=== PATIENT | male | born 1945 ===

== ENCOUNTER 2018-09-28 11:27 | Observation (INO) | payer MEDICARE ==
[2018-09-28 11:35] VITALS: BMI 22.3
--- NOTE | 2018-09-28 12:31 | CARD ---
APPROVED REPORT Date of service: 09/28/2018 EKG Measurement Heart [id number] <Conclusion> Normal sinus rhythm Normal ECG
--- NOTE | 2018-09-28 12:38 | ED PDOC ---
HPI: Chest Pain Time Seen by Provider: 09/28/18 12:04 Chief Complaint (Nursing): Chest Pain Chief Complaint (Provider): Chest pain History Per: Patient History/Exam Limitations: no limitations Onset/Duration Of Symptoms: Days Current Symptoms Are (Timing): Still Present Quality: "Pain" Associated Symptoms: Other (clavicular pain). denies: Nausea, Dyspnea, Diaphoresis, Syncope Additional History Per: Patient Additional Complaint(s): 73yo male, with history of HIV (reports normal labs), comes to ER reporting right sided chest pain x 1 week. He reports when the pain initially started, it was "the most severe pain" in his right clavicle area; states the pain is now present in his right chest. Patient reports pain with deep inspiration and shortness of breath as well. He reports a mild cough and associated fever, with tmax today of 100.0. Patient has been taking over the counter cold medications, with some relief of pain; last taken at 8am today. He denies any trauma or injury to the chest area, heavy lifting, or falls. No radiation of pain into arm or neck. No additional complaints. PMD: [facility] Past Medical History Reviewed: Historical Data, Nursing Documentation, Vital Signs Vital Signs: Last Vital Signs Temp 98.5 F 09/28/18 11:36 Pulse 89 09/28/18 11:36 Resp 20 09/28/18 11:36 BP 138/59 L 09/28/18 11:36 Pulse Ox 95 09/28/18 11:36 Primary Care Provider: Non [facility] Provider, - Medical History PMH: Colonic Polyps, Gall Bladder Disease, HIV, HTN, Hypercholesterolemia, Pancreatitis, Chronic Kidney Disease (proteinuria renal insufficiency) - Surgical History Surgical History: Cholecystectomy - Family History Family History: States: No Known Family Hx - Home Medications Home Medications: Ambulatory Orders Medication Instructions Recorded Darunavir/Cobicistat [Prezcobix 1 tab PO DAILY 05/08/18 150 mg-800 mg] Enalapril Maleate [Vasotec] 2.5 mg PO DAILY 05/08/18 Fenofibrate Nanocrystallized 1 tab PO DAILY 05/08/18 [Tricor] Furosemide [Lasix] 20 mg PO DAILY 05/08/18 GlipiZIDE [Glucotrol] 5 mg PO DAILY 05/08/18 Insulin Detemir [Levemir] 15 unit SC HS 05/08/18 Lamivudine 300 mg PO DAILY 05/08/18 Lipase/Protease/Amylase [Creon Dr 1 tab PO TID 05/08/18 24,000 Units Capsule] Ridgewood-3 Fatty Acids [Ridgewood-3] 1 cap PO BID 05/08/18 Vitamin B Complex [Berroca] 1 tab PO DAILY 05/08/18 Aspirin [Adult Aspirin] 81 mg PO DAILY 05/29/18 - Allergies Allergies/Adverse Reactions: Allergies Allergy/AdvReac Type Severity Reaction Status Date / Time No Known Allergies Allergy Verified 05/29/18 09:07 Review of Systems ROS Statement: Except As Marked, All Systems Reviewed And Found Negative Constitutional: Positive for: Fever Cardiovascular: Positive for: Chest Pain, Other (right sided clavicular pain) Respiratory: Positive for: Cough, Shortness of Breath Musculoskeletal: Positive for: Other. Negative for: Neck Pain, Arm Pain Physical Exam - Reviewed Nursing Documentation Reviewed: Yes Vital Signs Reviewed: Yes - Physical Exam Appears: Positive for: Non-toxic, No Acute Distress Head Exam: Positive for: ATRAUMATIC, NORMAL INSPECTION, NORMOCEPHALIC Skin: Positive for: Normal Color Eye Exam: Positive for: Normal appearance Neck: Positive for: Normal, Supple Cardiovascular/Chest: Positive for: Regular Rate, Rhythm, Chest Non Tender, Other (no clavicular tenderness). Negative for: Murmur, Tachycardia Respiratory: Positive for: Normal Breath Sounds. Negative for: Respiratory Distress Gastrointestinal/Abdominal: Positive for: Normal Exam, Soft Back: Positive for: Normal Inspection Extremity: Positive for: Normal ROM. Negative for: Pedal Edema, Deformity Neurological/Psych: Positive for: Awake, Alert, Normal Tone - Laboratory Results Result Diagrams: 09/28/18 12:40 09/28/18 12:40 - ECG O2 Sat by Pulse Oximetry: 95 (RA) Pulse Ox Interpretation: Normal Medical Decision Making Medical Decision Makinyo male with right sided chest pain x 1 week associated right clavicular pain, shortness of breath, cough and fever Plan: -- Labs -- EKG -- CXR 1450 CXR FINDINGS: LUNGS: Limited linear atelectasis right base. No definite infiltrate bilaterally. PLEURA: Trace right pleural effusion identified. None is seen the left. No pneumothorax bilaterally. Elevated right hemidiaphragm noted. CARDIOVASCULAR: No aortic atherosclerotic calcification present. Upper limits normal size heart. No pulmonary vascular congestion. OSSEOUS STRUCTURES: No significant abnormalities. VISUALIZED UPPER ABDOMEN: Normal. OTHER FINDINGS: None. IMPRESSION: Trace right pleural effusion. Elevated right hemidiaphragm noted. Linear atelectasis noted right base. No definite infiltrate bilaterally. CT Angio Chest ordered 1499 Patient signed out to Dr. Garcia pending Chest CT ---- ScribeAttestation: Documented byAlexandra Salgado acting as a scribe for Nila Salmeron MD. Provider ScribeAttestation: All medical record entries made by the Scribe were at my direction and personally dictated by me. I have reviewed the chart and agree that the record accurately reflects my personal performance of the history, physical exam, medical decision making, and the department course for this patient. I have also personally directed, reviewed, and agree with the discharge instructions and disposition. Disposition - Patient ED Disposition Is Patient to be Admitted: Transfer of Care - Disposition Disposition: Transfer of Care Disposition Time: 15:00 Condition: STABLE Forms: [employer] (Pakistani) Patient Signed Over To: Roberto Garcia
[2018-09-28 12:57] LABS: BASO % 0.4 % (0.0-2.0); EOS # 0.1 K/uL (0.0-0.7); EOS % 0.5 % (0.0-4.0); HEMOGLOBIN 8.6 g/dL (12.0-18.0); LYMPH % 9.6 % (20.0-40.0); MEAN CELL VOLUME 59.7 fl (80.0-94.0); MEAN CORPUSCULAR HEMOGLOBIN 18.7 pg (27.0-31.0); MEAN CORPUSCULAR HGB CONC 31.4 g/dL (33.0-37.0); MEAN PLATELET VOLUME 8.5 fl (7.2-11.7); MONO % 10.1 % (0.0-10.0); NEUT # 8.2 K/uL (1.8-7.0); NEUT % 79.4 % (50.0-75.0); PLATELET COUNT 318 K/uL (130-400); RBC 4.61 Mil/uL (4.40-5.90); RED CELL DISTRIBUTION WIDTH 16.7 % (11.5-14.5); WHITE BLOOD COUNT 10.3 K/uL (4.8-10.8)
[2018-09-28 13:01] LABS: URINE BILIRUBIN NEGATIVE (NEGATIVE); URINE BLOOD NEGATIVE (NEGATIVE); URINE CLARITY CLEAR (Clear); URINE COLOR YELLOW (YELLOW); URINE GLUCOSE (UA) NEG (NEGATIVE); URINE LEUKOCYTE ESTERASE NEG Leu/uL (Negative); URINE PROTEIN 30 mg/dL (NEGATIVE); URINE UROBILINOGEN 0.2-1.0 mg/dL (0.2-1.0)
[2018-09-28 13:05] LABS: INR 1.3; PROTHROMBIN TIME 14.8 Seconds (9.8-13.1)
[2018-09-28 13:08] LABS: PARTIAL THROMBOPLASTIN TIME 33.8 Seconds (25.6-37.1)
[2018-09-28 13:15] LABS: ALB/GLOB RATIO 0.9 (1.0-2.1); ALBUMIN 4.3 g/dL (3.5-5.0); ALT/SGPT 23 U/L (21-72); AST/SGOT 31 U/L (17-59); BLOOD UREA NITROGEN 20 mg/dl (9-20); CALCIUM 9.7 mg/dL (8.4-10.2); GFR NON-AFRICAN AMERICAN 43
[2018-09-28 13:22] LABS: BANDS 2 % (0-2); BASOPHIL 1 % (0-2); LYMPHOCYTE 14 % (20-50); METAMYELOCYTE 1 % (0-0); MONOCYTE 6 % (0-10); MYELOCYTE 1 % (0-0); NEUTROPHIL 75 % (42-75); TOTAL CELLS COUNTED 100
[2018-09-28 13:23] LABS: PLATELET ESTIMATE NORMAL (NORMAL)
[2018-09-28 13:24] LABS: ANISOCYTOSIS SLIGHT; B-TYPE NATRIURETIC PEPTIDE 1360 pg/ml (0-900); POIKILOCYTOSIS SLIGHT
[2018-09-28 13:25] LABS: HYPOCHROMIC SLIGHT; MICROCYTOSIS MODERATE; OVALOCYTES SLIGHT; SCHISTOCYTES SLIGHT; SPHEROCYTES SLIGHT; TARGET CELLS SLIGHT
[2018-09-28 13:26] LABS: LARGE PLATELETS PRESENT; TEARDROP CELLS SLIGHT
--- NOTE | 2018-09-28 14:18 | RAD ---
Date of service: 09/28/2018 HISTORY: R sided CP, SOB COMPARISON: Chest CT 07/06/2018. TECHNIQUE: Chest PA and lateral views FINDINGS: LUNGS: Limited linear atelectasis right base. No definite infiltrate bilaterally. PLEURA: Trace right pleural effusion identified. None is seen the left. No pneumothorax bilaterally. Elevated right hemidiaphragm noted. CARDIOVASCULAR: No aortic atherosclerotic calcification present. Upper limits normal size heart. No pulmonary vascular congestion. OSSEOUS STRUCTURES: No significant abnormalities. VISUALIZED UPPER ABDOMEN: Normal. OTHER FINDINGS: None. IMPRESSION: Trace right pleural effusion. Elevated right hemidiaphragm noted. Linear atelectasis noted right base. No definite infiltrate bilaterally.
--- NOTE | 2018-09-28 15:09 | ED PDOC ---
- Laboratory Results Result Diagrams: 09/28/18 12:40 09/28/18 12:40 Lab Results: PT 14.8 Seconds (9.8-13.1) H 09/28/18 12:40 INR 1.3 09/28/18 12:40 APTT 33.8 Seconds (25.6-37.1) 09/28/18 12:40 D-Dimer, Quantitative 967 ng/mlDDU (0-230) H 09/28/18 12:40 Troponin I < 0.0120 ng/mL (0.00-0.120) 09/28/18 12:40 NT-Pro-B Natriuret Pep 1360 pg/ml (0-900) H 09/28/18 12:40 Total Bilirubin 0.5 mg/dl (0.2-1.3) 09/28/18 12:40 AST 31 U/L (17-59) 09/28/18 12:40 ALT 23 U/L (21-72) 09/28/18 12:40 Alkaline Phosphatase 47 U/L (38-126) 09/28/18 12:40 Total Protein 8.9 G/DL (6.3-8.2) H 09/28/18 12:40 Albumin 4.3 g/dL (3.5-5.0) 09/28/18 12:40 Globulin 4.6 gm/dL (2.2-3.9) H 09/28/18 12:40 Albumin/Globulin Ratio 0.9 (1.0-2.1) L 09/28/18 12:40 Urine Color Yellow (YELLOW) 09/28/18 12:40 Urine Clarity Clear (Clear) 09/28/18 12:40 Urine pH 6.0 (5.0-8.0) 09/28/18 12:40 Ur Specific Bill[place] 1.008 (1.003-1.030) 09/28/18 12:40 Urine Protein 30 mg/dL (NEGATIVE) 09/28/18 12:40 Urine Glucose (UA) Neg mg/dL (NEGATIVE) 09/28/18 12:40 Urine Ketones Negative mg/dL (NEGATIVE) 09/28/18 12:40 Urine Blood Negative (NEGATIVE) 09/28/18 12:40 Urine Nitrate Negative (NEGATIVE) 09/28/18 12:40 Urine Bilirubin Negative (NEGATIVE) 09/28/18 12:40 Urine Urobilinogen 0.2-1.0 mg/dL (0.2-1.0) 09/28/18 12:40 Ur Leukocyte Esterase Neg Dee/uL (Negative) 09/28/18 12:40 Urine RBC (Auto) 1 /hpf (0-3) 09/28/18 12:40 Urine Microscopic WBC < 1 /hpf (0-5) 09/28/18 12:40 Interpretation Of Abn Labs: 1.6 cr, probnp mild elevation, 8.6 hg - ECG ECG: Positive for: Interpreted By Me, Viewed By Me ECG Rhythm: Positive for: Normal QRS, Normal ST Segment, Sinus Rhythm O2 Sat by Pulse Oximetry: 95 (RA) Pulse Ox Interpretation: Normal - CT Scan/US ct Other Rad Studies (CT/US): Read By Radiologist Other Rad Interpretation: pleural effusion small; R middle and lower lobe inifiltrate - Progress ED Course And Treament: 1759: AAOx3. Stable. Does not meet sepsis criteria at this time. Breathing well. Tolerated PO. Will admit for obs considering risk factors, age. Hg dropped from previous. Probnp elevation likely from cr abnormality. Cr abnormal, but improved from old. Spoke with [facility] who will admit for Dr. Metzger. Medical Decision Making Medical Decision Makin Patient signed out to me by Dr. Salmeron pending CT Chest. 1650 CT Chest FINDINGS: PULMONARY ARTERIES: Unremarkable. No pulmonary embolism. AORTA: No acute findings. No thoracic aortic aneurysm. No atherosclerotic calcification or mural plaque present. LUNGS: Consolidative changes right lower lobe and right middle lobe. PLEURAL SPACES: Small right pleural effusion. Pneumothorax. HEART: Unremarkable. No cardiomegaly. No significant pericardial effusion. LYMPH NODES: No lymphadenopathy. BONES, CHEST WALL: Unremarkable. No fracture or destructive lesion OTHER FINDINGS: Redemonstration of hepatic masses including the mass IMPRESSION: 1. Unremarkable CT pulmonary angiogram. No pulmonary embolus. 2. Small right pleural effusion. 3. Right middle lobe, right lower lobe infiltrates. 4. Redemonstration right lobe hepatic mass. ScribeAttestation: Documented byAlexandra Salgado acting as a scribe for Roberto Garcia MD. Provider ScribeAttestation: All medical record entries made by the Scribe were at my direction and personally dictated by me. I have reviewed the chart and agree that the record accurately reflects my personal performance of the history, physical exam, medical decision making, and the department course for this patient. I have also personally directed, reviewed, and agree with the discharge instructions and disposition. Disposition Counseled Patient/Family Regarding: Studies Performed, Diagnosis - Clinical Impression Clinical Impression: Pneumonia, Anemia - POA Present On Arrival: None - Disposition Disposition: Hospitalized as Observation Patient Disposition Time: 16:00 Condition: FAIR
[2018-09-28] MEDS ORDERED: Iodixanol 320 MG/ML 100 ML BOTTLE IV ONE (15:42)
[2018-09-28] MEDS ORDERED: Sodium Chloride 0.9% 50 ML IV ONE (15:43)
--- NOTE | 2018-09-28 16:36 | CT ---
Date of service: 09/28/2018 PROCEDURE: CT Chest with contrast (Pulmonary Angiogram) HISTORY: R sided CP, SOB COMPARISON: None available. TECHNIQUE: Axial computed tomography images were obtained of the chest in the pulmonary arterial phase of enhancement. Coronal and sagittal reformatted images were created and reviewed. Intravenous contrast dose: 100 ml Omnipaque 300 Mean Hounsfield value in the main pulmonary artery: 286.90 Radiation dose: Total exam DLP = 284.66 MGy-cm. This CT exam was performed using one or more of the following dose reduction techniques: Automated exposure control, adjustment of the mA and/or kV according to patient size, and/or use of iterative reconstruction technique. FINDINGS: PULMONARY ARTERIES: Unremarkable. No pulmonary embolism. AORTA: No acute findings. No thoracic aortic aneurysm. No atherosclerotic calcification or mural plaque present. LUNGS: Consolidative changes right lower lobe and right middle lobe. PLEURAL SPACES: Small right pleural effusion. Pneumothorax. HEART: Unremarkable. No cardiomegaly. No significant pericardial effusion. LYMPH NODES: No lymphadenopathy. BONES, CHEST WALL: Unremarkable. No fracture or destructive lesion OTHER FINDINGS: Redemonstration of hepatic masses including the mass IMPRESSION: 1. Unremarkable CT pulmonary angiogram. No pulmonary embolus. 2. Small right pleural effusion. 3. Right middle lobe, right lower lobe infiltrates. 4. Redemonstration right lobe hepatic mass.
[2018-09-28] MEDS ORDERED: cefTRIAXone (Rocephin) 1 gm Inj IV ONE (17:46)
[2018-09-28] MEDS ORDERED: Azithromycin 500 MG in Sodium Chloride 0.9% 250 ML IVPB ONE (18:00)
[2018-09-28] MEDS ORDERED: Azithromycin 500 MG IV IVPB ONE (18:31)
[2018-09-28 18:36] LABS: VENOUS BLOOD GAS BASE EXCESS 2.8 mmol/L (0.0-2.0); VENOUS BLOOD GAS PCO2 35 mmHg (40-60); VENOUS BLOOD GAS PO2 33 mm/Hg (30-55); VENOUS BLOOD PH 7.48 (7.32-7.43)
[2018-09-28] MEDS ORDERED: Sodium Chloride 3% for Inhalation 4 ML VIAL.NEB IH PRN (18:36)
[2018-09-28] MEDS ORDERED: Azithromycin 500 MG in Sodium Chloride 0.9% 250 ML IVPB STA (18:52)
--- NOTE | 2018-09-28 18:52 | CP.PCM.HP ---
<Binh Lowry - Last Filed: 09/28/18 18:52> History of Present Illness - History of Present Illness History of Present Illness: 73 yo M with pmhx of HIV, HTN, DLD, DM presents to the ED with L clavicular pain. Pt stated pain started 1 week ago. Described to be "bone pain", worst pain of his life, intermittently radiating to his R chest. Pain also associated with intermittent dyspnea. Pt reports subjective fevers since onset of pain. Pt denies recent falls or direct trauma to his clavicle. No nausea or vomiting. Pt tolerating regular Po diet and normal bm. Denies current sick contacts Of note: pt last traveled to [place] in and traveled with sister who had "broncho-pneumonia". PMD: Dr. Huff at [address] [place] [address] in [place] Surg: cholecystectomy, and phymosis Soc: denies smoking, alcohol, illicit drugs; Lives along Famhx: dm Rx: reconciled NKDA Present on Admission - Present on Admission Any Indicators Present on Admission: No History of Uncontrolled Diabetes: No Review of Systems - Constitutional Constitutional: Chills, Fever - Cardiovascular Cardiovascular: Chest Pain Additional comments: R clavicular pain - Respiratory Respiratory: Cough, Dyspnea - Gastrointestinal Gastrointestinal: absent: Abdominal Pain, Constipation, Diarrhea - Musculoskeletal Musculoskeletal: absent: Abnormal Gait - Neurological Neurological: absent: Abnormal Gait Past Patient History - Past Medical History & Family History Past Medical History?: Yes - Past Social History Smoking Status: Never Smoked Alcohol: None Drugs: Denies Home Situation {Lives}: Alone - CARDIAC Hx Hypercholesterolemia: Yes Hx Hypertension: Yes - PULMONARY Hx Respiratory Disorders: No - NEUROLOGICAL Hx Neurological Disorder: No - HEENT Hx HEENT Problems: Yes Hx Cataracts: Yes (bilat) - RENAL 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) - ENDOCRINE/METABOLIC Hx Endocrine Disorders: Yes Hx Diabetes Mellitus Type 2: Yes - HEMATOLOGICAL/ONCOLOGICAL Hx Human Immunodeficiency Virus (HIV): Yes - INTEGUMENTARY Hx Dermatological Problems: No - MUSCULOSKELETAL/RHEUMATOLOGICAL Hx Musculoskeletal Disorders: No - GASTROINTESTINAL Hx Gall Bladder Disease: Yes Hx Pancreatitis: Yes - GENITOURINARY/GYNECOLOGICAL Hx Genitourinary Disorders: Yes Hx Prostate Problems: Yes - PSYCHIATRIC Hx Psychophysiologic Disorder: No Hx Substance Use: No - SURGICAL HISTORY Hx Cholecystectomy: Yes - ANESTHESIA Hx Anesthesia: Yes Hx Anesthesia Reactions: No Hx Malignant Hyperthermia: No Meds Allergies/Adverse Reactions: Allergies Allergy/AdvReac Type Severity Reaction Status Date / Time No Known Allergies Allergy Verified 05/29/18 09:07 Physical Exam - Constitutional Appears: Well, No Acute Distress - Eye Exam Eye Exam: EOMI - ENT Exam ENT Exam: Mucous Membranes Moist - Respiratory Exam Respiratory Exam: Decreased Breath Sounds (At R lower lung ). absent: Chest Wall Tenderness, Wheezes - Cardiovascular Exam Cardiovascular Exam: +S1, +S2 - GI/Abdominal Exam GI & Abdominal Exam: Normal Bowel Sounds, Soft. absent: Tenderness - Extremities Exam Extremities exam: Negative for: calf tenderness - Back Exam Back exam: absent: CVA tenderness (L), CVA tenderness (R) - Neurological Exam Neurological exam: Alert, CN II-XII Intact, Oriented x3 - Psychiatric Exam Psychiatric exam: Normal Affect, Normal Mood Results - Vital Signs Recent Vital Signs: Last Vital Signs Temp 98.5 F 09/28/18 11:36 Pulse 76 09/28/18 14:13 Resp 21 09/28/18 17:28 BP 148/60 09/28/18 17:28 Pulse Ox 95 09/28/18 18:00 - Labs Result Diagrams: 09/28/18 12:40 09/28/18 12:40 Labs: Laboratory Results - last 24 hr 09/28/18 09/28/18 09/28/18 12:40 12:40 12:40 WBC 10.3 RBC 4.61 Hgb 8.6 L D Hct 27.5 L MCV 59.7 L D MCH 18.7 L MCHC 31.4 L RDW 16.7 H Plt Count 318 MPV 8.5 Neut % (Auto) 79.4 H Lymph % (Auto) 9.6 L Rooks % (Auto) 10.1 H Eos % (Auto) 0.5 Baso % (Auto) 0.4 Neut # (Auto) 8.2 H Lymph # (Auto) 1.0 Rooks # (Auto) 1.0 H Eos # (Auto) 0.1 Baso # (Auto) 0.0 Neutrophils % (Manual) 75 Band Neutrophils % 2 Lymphocytes % (Manual) 14 L Monocytes % (Manual) 6 Basophils % (Manual) 1 Metamyelocytes % 1 H Myelocytes % 1 H Platelet Estimate Normal Large Platelets Present Hypochromasia (manual) Slight Poikilocytosis (manual Slight Anisocytosis (manual) Slight Microcytosis (manual) Moderate Spherocytes Slight Target Cells Slight Tear Drop Cells Slight Ovalocytes Slight Schistocytes Slight PT 14.8 H INR 1.3 APTT 33.8 D-Dimer, Quantitative 967 H pO2 VBG pH VBG pCO2 VBG HCO3 VBG Total CO2 VBG O2 Sat (Calc) VBG Base Excess VBG Potassium Glucose Lactate FiO2 Sodium 132 Potassium 4.4 Chloride 95 L Carbon Dioxide 21 L Anion Gap 20 BUN 20 Creatinine 1.6 H Est GFR ( Amer) 52 Est GFR (Non-Af Amer) 43 POC Glucose (mg/dL) Random Glucose 81 Calcium 9.7 Total Bilirubin 0.5 AST 31 ALT 23 Alkaline Phosphatase 47 Troponin I < 0.0120 NT-Pro-B Natriuret Pep 1360 H Total Protein 8.9 H Albumin 4.3 Globulin 4.6 H Albumin/Globulin Ratio 0.9 L Venous Blood Potassium Urine Color Urine Clarity Urine pH Ur Specific [place] Urine Protein Urine Glucose (UA) Urine Ketones Urine Blood Urine Nitrate Urine Bilirubin Urine Urobilinogen Ur Leukocyte Esterase Urine RBC (Auto) Urine Microscopic WBC Influenza Typ A,B (EIA) 09/28/18 09/28/18 09/28/18 12:40 12:40 12:48 WBC RBC Hgb Hct MCV MCH MCHC RDW Plt Count MPV Neut % (Auto) Lymph % (Auto) Rooks % (Auto) Eos % (Auto) Baso % (Auto) Neut # (Auto) Lymph # (Auto) Rooks # (Auto) Eos # (Auto) Baso # (Auto) Neutrophils % (Manual) Band Neutrophils % Lymphocytes % (Manual) Monocytes % (Manual) Basophils % (Manual) Metamyelocytes % Myelocytes % Platelet Estimate Large Platelets Hypochromasia (manual) Poikilocytosis (manual Anisocytosis (manual) Microcytosis (manual) Spherocytes Target Cells Tear Drop Cells Ovalocytes Schistocytes PT INR APTT D-Dimer, Quantitative pO2 VBG pH VBG pCO2 VBG HCO3 VBG Total CO2 VBG O2 Sat (Calc) VBG Base Excess VBG Potassium Glucose Lactate FiO2 Sodium Potassium Chloride Carbon Dioxide Anion Gap BUN Creatinine Est GFR ( Amer) Est GFR (Non-Af Amer) POC Glucose (mg/dL) 90 Random Glucose Calcium Total Bilirubin AST ALT Alkaline Phosphatase Troponin I NT-Pro-B Natriuret Pep Total Protein Albumin Globulin Albumin/Globulin Ratio Venous Blood Potassium Urine Color Yellow Urine Clarity Clear Urine pH 6.0 Ur Specific [place] 1.008 Urine Protein 30 Urine Glucose (UA) Neg Urine Ketones Negative Urine Blood Negative Urine Nitrate Negative Urine Bilirubin Negative Urine Urobilinogen 0.2-1.0 Ur Leukocyte Esterase Neg Urine RBC (Auto) 1 Urine Microscopic WBC < 1 Influenza Typ A,B (EIA) Negative for flu a/b 09/28/18 18:33 WBC RBC Hgb Hct MCV MCH MCHC RDW Plt Count MPV Neut % (Auto) Lymph % (Auto) Rooks % (Auto) Eos % (Auto) Baso % (Auto) Neut # (Auto) Lymph # (Auto) Rooks # (Auto) Eos # (Auto) Baso # (Auto) Neutrophils % (Manual) Band Neutrophils % Lymphocytes % (Manual) Monocytes % (Manual) Basophils % (Manual) Metamyelocytes % Myelocytes % Platelet Estimate Large Platelets Hypochromasia (manual) Poikilocytosis (manual Anisocytosis (manual) Microcytosis (manual) Spherocytes Target Cells Tear Drop Cells Ovalocytes Schistocytes PT INR APTT D-Dimer, Quantitative pO2 33 VBG pH 7.48 H VBG pCO2 35 L VBG HCO3 26.3 VBG Total CO2 27.2 VBG O2 Sat (Calc) 74.8 H VBG Base Excess 2.8 H VBG Potassium 4.5 Glucose 189 H Lactate 1.4 FiO2 21.0 Sodium 129.0 L Potassium Chloride 96.0 L Carbon Dioxide Anion Gap BUN Creatinine Est GFR ( Amer) Est GFR (Non-Af Amer) POC Glucose (mg/dL) Random Glucose Calcium Total Bilirubin AST ALT Alkaline Phosphatase Troponin I NT-Pro-B Natriuret Pep Total Protein Albumin Globulin Albumin/Globulin Ratio Venous Blood Potassium 4.5 Urine Color Urine Clarity Urine pH Ur Specific [place] Urine Protein Urine Glucose (UA) Urine Ketones Urine Blood Urine Nitrate Urine Bilirubin Urine Urobilinogen Ur Leukocyte Esterase Urine RBC (Auto) Urine Microscopic WBC Influenza Typ A,B (EIA) Assessment & Plan - Assessment and Plan (Free Text) Assessment: 73 yo M with pmhx of HIV, HTN, DLD, DM presents to the ED with L clavicular pain. Admitted for pneumonia. Plan: CXR: Trace right pleural effusion. Elevated right hemidiaphragm noted. Linear atelectasis noted right base. No definite infiltrate bilaterally. CT CHEST: 1. Unremarkable CT pulmonary angiogram. No pulmonary embolus. 2. Small right pleural effusion. 3. Right middle lobe, right lower lobe infiltrates. 4. Redemonstration right lobe hepatic mass. Pneumonia: CAP O2: 98% RA Afebrile s/p Rocephin 1 g and Azithromycin in ER IVABX: c/w Azithromycin and Rocephin IVF: NS f/u am labs, UA, blood and sputum culture Elevated d-dimer: 967 CT chest: no PE CHF BNP: 1360 Lasix 20 Monitor I&Os Anemia: H/H: 8.6/27.5 MCV: chronic in 60s Stool guaiac ordered Monitor for bleed, vitals HTN: c/w home meds: enalapril monitor vitals DM: c/w home meds: glipizide, Levemir Accuchecks ICS: low dose DLD: c/w home meds Fenofibrate HIV: c/w home meds: prezcobix, epivir DVT prophylaxis lovenox Case and plan d/w Dr. Theo Lowry MD PGY2 <Marlon Venegas D - Last Filed: 09/29/18 09:29> Results - Vital Signs Recent Vital Signs: Last Vital Signs Temp 99.0 F 09/29/18 07:48 Pulse 77 09/29/18 07:48 Resp 20 09/29/18 07:48 BP 124/61 09/29/18 07:48 Pulse Ox 99 09/29/18 07:48 - Labs Result Diagrams: 09/29/18 06:00 09/29/18 06:00 Labs: Laboratory Results - last 24 hr 09/28/18 09/28/18 09/28/18 12:40 12:40 12:40 WBC 10.3 RBC 4.61 Hgb 8.6 L D Hct 27.5 L MCV 59.7 L D MCH 18.7 L MCHC 31.4 L RDW 16.7 H Plt Count 318 MPV 8.5 Neut % (Auto) 79.4 H Lymph % (Auto) 9.6 L Rooks % (Auto) 10.1 H Eos % (Auto) 0.5 Baso % (Auto) 0.4 Neut # (Auto) 8.2 H Lymph # (Auto) 1.0 Rooks # (Auto) 1.0 H Eos # (Auto) 0.1 Baso # (Auto) 0.0 Neutrophils % (Manual) 75 Band Neutrophils % 2 Lymphocytes % (Manual) 14 L Monocytes % (Manual) 6 Basophils % (Manual) 1 Metamyelocytes % 1 H Myelocytes % 1 H Platelet Estimate Normal Large Platelets Present Hypochromasia (manual) Slight Poikilocytosis (manual Slight Anisocytosis (manual) Slight Microcytosis (manual) Moderate Spherocytes Slight Target Cells Slight Tear Drop Cells Slight Ovalocytes Slight Schistocytes Slight PT 14.8 H INR 1.3 APTT 33.8 D-Dimer, Quantitative 967 H pO2 VBG pH VBG pCO2 VBG HCO3 VBG Total CO2 VBG O2 Sat (Calc) VBG Base Excess VBG Potassium Glucose Lactate FiO2 Sodium 132 Potassium 4.4 Chloride 95 L Carbon Dioxide 21 L Anion Gap 20 BUN 20 Creatinine 1.6 H Est GFR ( Amer) 52 Est GFR (Non-Af Amer) 43 POC Glucose (mg/dL) Random Glucose 81 Calcium 9.7 Total Bilirubin 0.5 AST 31 ALT 23 Alkaline Phosphatase 47 Troponin I < 0.0120 NT-Pro-B Natriuret Pep 1360 H Total Protein 8.9 H Albumin 4.3 Globulin 4.6 H Albumin/Globulin Ratio 0.9 L Venous Blood Potassium Urine Color Urine Clarity Urine pH Ur Specific [place] Urine Protein Urine Glucose (UA) Urine Ketones Urine Blood Urine Nitrate Urine Bilirubin Urine Urobilinogen Ur Leukocyte Esterase Urine RBC (Auto) Urine Microscopic WBC Influenza Typ A,B (EIA) 09/28/18 09/28/18 09/28/18 12:40 12:40 12:48 WBC RBC Hgb Hct MCV MCH MCHC RDW Plt Count MPV Neut % (Auto) Lymph % (Auto) [place]ooks % (Auto) Eos % (Auto) Baso % (Auto) Neut # (Auto) Lymph # (Auto) [place]s # (Auto) Eos # (Auto) Baso # (Auto) Neutrophils % (Manual) Band Neutrophils % Lymphocytes % (Manual) Monocytes % (Manual) Basophils % (Manual) Metamyelocytes % Myelocytes % Platelet Estimate Large Platelets Hypochromasia (manual) Poikilocytosis (manual Anisocytosis (manual) Microcytosis (manual) Spherocytes Target Cells Tear Drop Cells Ovalocytes Schistocytes PT INR APTT D-Dimer, Quantitative pO2 VBG pH VBG pCO2 VBG HCO3 VBG Total CO2 VBG O2 Sat (Calc) VBG Base Excess VBG Potassium Glucose Lactate FiO2 Sodium Potassium Chloride Carbon Dioxide Anion Gap BUN Creatinine Est GFR ( Amer) Est GFR (Non-Af Amer) POC Glucose (mg/dL) 90 Random Glucose Calcium Total Bilirubin AST ALT Alkaline Phosphatase Troponin I NT-Pro-B Natriuret Pep Total Protein Albumin Globulin Albumin/Globulin Ratio Venous Blood Potassium Urine Color Yellow Urine Clarity Clear Urine pH 6.0 Ur Specific [place] 1.008 Urine Protein 30 Urine Glucose (UA) Neg Urine Ketones Negative Urine Blood Negative Urine Nitrate Negative Urine Bilirubin Negative Urine Urobilinogen 0.2-1.0 Ur Leukocyte Esterase Neg Urine RBC (Auto) 1 Urine Microscopic WBC < 1 Influenza Typ A,B (EIA) Negative for flu a/b 09/28/18 09/28/18 09/28/18 18:33 18:50 22:12 WBC RBC Hgb Hct MCV MCH MCHC RDW Plt Count MPV Neut % (Auto) Lymph % (Auto) Rooks % (Auto) Eos % (Auto) Baso % (Auto) Neut # (Auto) Lymph # (Auto) [place]s # (Auto) Eos # (Auto) Baso # (Auto) Neutrophils % (Manual) Band Neutrophils % Lymphocytes % (Manual) Monocytes % (Manual) Basophils % (Manual) Metamyelocytes % Myelocytes % Platelet Estimate Large Platelets Hypochromasia (manual) Poikilocytosis (manual Anisocytosis (manual) Microcytosis (manual) Spherocytes Target Cells Tear Drop Cells Ovalocytes Schistocytes PT INR APTT D-Dimer, Quantitative pO2 33 VBG pH 7.48 H VBG pCO2 35 L VBG HCO3 26.3 VBG Total CO2 27.2 VBG O2 Sat (Calc) 74.8 H VBG Base Excess 2.8 H VBG Potassium 4.5 Glucose 189 H Lactate 1.4 FiO2 21.0 Sodium 129.0 L Potassium Chloride 96.0 L Carbon Dioxide Anion Gap BUN Creatinine Est GFR ( Amer) Est GFR (Non-Af Amer) POC Glucose (mg/dL) 223 H Random Glucose Calcium Total Bilirubin AST ALT Alkaline Phosphatase Troponin I NT-Pro-B Natriuret Pep Total Protein Albumin Globulin Albumin/Globulin Ratio Venous Blood Potassium 4.5 Urine Color Yellow Urine Clarity Clear Urine pH 6.0 Ur Specific [place] 1.009 Urine Protein 30 Urine Glucose (UA) Neg Urine Ketones Negative Urine Blood Negative Urine Nitrate Negative Urine Bilirubin Negative Urine Urobilinogen 0.2-1.0 Ur Leukocyte Esterase Neg Urine RBC (Auto) Urine Microscopic WBC < 1 Influenza Typ A,B (EIA) 09/29/18 09/29/18 09/29/18 05:09 06:00 06:00 WBC 8.6 RBC 3.97 L Hgb 7.5 L Hct 23.2 L MCV 58.3 L MCH 18.8 L MCHC 32.3 L RDW 16.5 H Plt Count 296 MPV 8.5 Neut % (Auto) 76.6 H Lymph % (Auto) 9.4 L Rooks % (Auto) 13.2 H Eos % (Auto) 0.5 Baso % (Auto) 0.3 Neut # (Auto) 6.6 Lymph # (Auto) 0.8 L Rooks # (Auto) 1.1 H Eos # (Auto) 0.0 Baso # (Auto) 0.0 Neutrophils % (Manual) Band Neutrophils % Lymphocytes % (Manual) Monocytes % (Manual) Basophils % (Manual) Metamyelocytes % Myelocytes % Platelet Estimate Large Platelets Hypochromasia (manual) Poikilocytosis (manual Anisocytosis (manual) Microcytosis (manual) Spherocytes Target Cells Tear Drop Cells Ovalocytes Schistocytes PT INR APTT D-Dimer, Quantitative pO2 VBG pH VBG pCO2 VBG HCO3 VBG Total CO2 VBG O2 Sat (Calc) VBG Base Excess VBG Potassium Glucose Lactate FiO2 Sodium 131 L Potassium 4.0 Chloride 98 Carbon Dioxide 23 Anion Gap 14 BUN 17 Creatinine 1.3 Est GFR ( Amer) > 60 Est GFR (Non-Af Amer) 54 POC Glucose (mg/dL) 154 H Random Glucose 130 H Calcium 8.6 Total Bilirubin AST ALT Alkaline Phosphatase Troponin I NT-Pro-B Natriuret Pep Total Protein Albumin Globulin Albumin/Globulin Ratio Venous Blood Potassium Urine Color Urine Clarity Urine pH Ur Specific [place] Urine Protein Urine Glucose (UA) Urine Ketones Urine Blood Urine Nitrate Urine Bilirubin Urine Urobilinogen Ur Leukocyte Esterase Urine RBC (Auto) Urine Microscopic WBC Influenza Typ A,B (EIA) Attending/Attestation - Attestation I have personally seen and examined this patient.: Yes I have fully participated in the care of the patient.: Yes I have reviewed all pertinent clinical information: Yes Notes (Text): 09/29/18 09:28 Patient seen and examined with resident. Case discussed and agreed with assessment and plan of management.
[2018-09-28 19:10] LABS: URINE BILIRUBIN NEGATIVE (NEGATIVE); URINE BLOOD NEGATIVE (NEGATIVE); URINE CLARITY CLEAR (Clear); URINE COLOR YELLOW (YELLOW); URINE GLUCOSE (UA) NEG (NEGATIVE); URINE LEUKOCYTE ESTERASE NEG Leu/uL (Negative); URINE PROTEIN 30 mg/dL (NEGATIVE); URINE UROBILINOGEN 0.2-1.0 mg/dL (0.2-1.0)
[2018-09-28] MEDS ORDERED: Glucagon Recombinant 1 mg Inj IM PRN (19:10)
[2018-09-28] MEDS ORDERED: Dextrose 50% SYRINGE Inj (50 ml) IV PRN (19:10)
[2018-09-28] MEDS ORDERED: cefTRIAXone (Rocephin) 1 gm Inj ONE (20:28)
[2018-09-28] MEDS ORDERED: Insulin Detemir 100 Units/ml Inj SC SCH ×2 (22:00→23:15)
[2018-09-28 22:06] VITALS: RESP 20
[2018-09-28] MEDS: Sodium Chloride 0.9% 1,000 ML IV SCH (22:40)
[2018-09-28] MEDS: Insulin Regular 100 units/ml SC SCH (22:57)
[2018-09-29] MEDS: Sodium Chloride 0.9% 1,000 ML IV SCH (04:45)
[2018-09-29 06:30] LABS: BASO % 0.3 % (0.0-2.0); EOS % 0.5 % (0.0-4.0); HEMOGLOBIN 7.5 g/dL (12.0-18.0); LYMPH # 0.8 K/uL (1.0-4.3); LYMPH % 9.4 % (20.0-40.0); MEAN CELL VOLUME 58.3 fl (80.0-94.0); MEAN CORPUSCULAR HEMOGLOBIN 18.8 pg (27.0-31.0); MEAN CORPUSCULAR HGB CONC 32.3 g/dL (33.0-37.0); MEAN PLATELET VOLUME 8.5 fl (7.2-11.7); MONO # 1.1 K/uL (0.0-0.8); MONO % 13.2 % (0.0-10.0); NEUT # 6.6 K/uL (1.8-7.0); NEUT % 76.6 % (50.0-75.0); RBC 3.97 Mil/uL (4.40-5.90); RED CELL DISTRIBUTION WIDTH 16.5 % (11.5-14.5); WHITE BLOOD COUNT 8.6 K/uL (4.8-10.8)
[2018-09-29 06:36] LABS: BLOOD UREA NITROGEN 17 mg/dl (9-20); CALCIUM 8.6 mg/dL (8.4-10.2); GFR NON-AFRICAN AMERICAN 54
[2018-09-29] MEDS ORDERED: PROTEASE PO SCH (09:00)
[2018-09-29] MEDS ORDERED: Enoxaparin 40 mg Syringe SC SCH (09:00)
[2018-09-29] MEDS ORDERED: Azithromycin 500 MG in Sodium Chloride 0.9% 250 ML IVPB ONE (09:00)
[2018-09-29] MEDS ORDERED: Multivitamin Vitamin B Complex (Nephro-Vite) Tab PO SCH (09:00)
[2018-09-29] MEDS ORDERED: COBICISTAT PO SCH (09:00)
[2018-09-29] MEDS ORDERED: Omega-3-Acid Ethyl Esters 1 GM Cap PO SCH (09:00)
[2018-09-29] MEDS ORDERED: LIPASE PO SCH (09:00)
[2018-09-29] MEDS ORDERED: Pantoprazole 40 mg EC Tab PO SCH (09:00)
[2018-09-29] MEDS ORDERED: DARUNAVIR PO SCH (09:00)
[2018-09-29] MEDS ORDERED: AMYLASE PO SCH (09:00)
[2018-09-29] MEDS: Insulin Regular 100 units/ml SC SCH ×2 (09:58→11:57)
--- NOTE | 2018-09-29 10:42 | CP.PCM.DIS ---
<Mechelle Alfredo - Last Filed: 09/29/18 12:37> Provider - Provider Date of Admission: 09/28/18 17:55 Attending physician: Shannan Metzger MD Time Spent in preparation of Discharge (in minutes): 20 Diagnosis - Discharge Diagnosis (1) Pneumonia Status: Acute Hospital Course - Lab Results Lab Results: Most Recent Lab Values WBC 8.6 K/uL (4.8-10.8) 09/29/18 06:00 RBC 3.97 Mil/uL (4.40-5.90) L 09/29/18 06:00 Hgb 7.5 g/dL (12.0-18.0) L 09/29/18 06:00 Hct 23.2 % (35.0-51.0) L 09/29/18 06:00 MCV 58.3 fl (80.0-94.0) L 09/29/18 06:00 MCH 18.8 pg (27.0-31.0) L 09/29/18 06:00 MCHC 32.3 g/dL (33.0-37.0) L 09/29/18 06:00 RDW 16.5 % (11.5-14.5) H 09/29/18 06:00 Plt Count 296 K/uL (130-400) 09/29/18 06:00 MPV 8.5 fl (7.2-11.7) 09/29/18 06:00 Neut % (Auto) 76.6 % (50.0-75.0) H 09/29/18 06:00 Lymph % (Auto) 9.4 % (20.0-40.0) L 09/29/18 06:00 [place]aston % (Auto) 13.2 % (0.0-10.0) H 09/29/18 06:00 Eos % (Auto) 0.5 % (0.0-4.0) 09/29/18 06:00 Baso % (Auto) 0.3 % (0.0-2.0) 09/29/18 06:00 Neut # (Auto) 6.6 K/uL (1.8-7.0) 09/29/18 06:00 Lymph # (Auto) 0.8 K/uL (1.0-4.3) L 09/29/18 06:00 [place] # (Auto) 1.1 K/uL (0.0-0.8) H 09/29/18 06:00 Eos # (Auto) 0.0 K/uL (0.0-0.7) 09/29/18 06:00 Baso # (Auto) 0.0 K/uL (0.0-0.2) 09/29/18 06:00 Neutrophils % (Manual) 75 % (42-75) 09/28/18 12:40 Band Neutrophils % 2 % (0-2) 09/28/18 12:40 Lymphocytes % (Manual) 14 % (20-50) L 09/28/18 12:40 Monocytes % (Manual) 6 % (0-10) 09/28/18 12:40 Basophils % (Manual) 1 % (0-2) 09/28/18 12:40 Metamyelocytes % 1 % (0-0) H 09/28/18 12:40 Myelocytes % 1 % (0-0) H 09/28/18 12:40 Platelet Estimate Normal (NORMAL) 09/28/18 12:40 Large Platelets Present 09/28/18 12:40 Hypochromasia (manual) Slight 09/28/18 12:40 Poikilocytosis (manual Slight 09/28/18 12:40 Anisocytosis (manual) Slight 09/28/18 12:40 Microcytosis (manual) Moderate 09/28/18 12:40 Spherocytes Slight 09/28/18 12:40 Target Cells Slight 09/28/18 12:40 Tear Drop Cells Slight 09/28/18 12:40 Ovalocytes Slight 09/28/18 12:40 Schistocytes Slight 09/28/18 12:40 PT 14.8 Seconds (9.8-13.1) H 09/28/18 12:40 INR 1.3 09/28/18 12:40 APTT 33.8 Seconds (25.6-37.1) 09/28/18 12:40 D-Dimer, Quantitative 967 ng/mlDDU (0-230) H 09/28/18 12:40 pO2 33 mm/Hg (30-55) 09/28/18 18:33 VBG pH 7.48 (7.32-7.43) H 09/28/18 18:33 VBG pCO2 35 mmHg (40-60) L 09/28/18 18:33 VBG HCO3 26.3 mmol/L 09/28/18 18:33 VBG Total CO2 27.2 mmol/L (22-28) 09/28/18 18:33 VBG O2 Sat (Calc) 74.8 % (40-65) H 09/28/18 18:33 VBG Base Excess 2.8 mmol/L (0.0-2.0) H 09/28/18 18:33 VBG Potassium 4.5 mmol/L (3.6-5.2) 09/28/18 18:33 Sodium 129.0 mmol/L (132-148) L 09/28/18 18:33 Chloride 96.0 mmol/L (98-107) L 09/28/18 18:33 Glucose 189 mg/dL (75-110) H 09/28/18 18:33 Lactate 1.4 mmol/L (0.7-2.1) 09/28/18 18:33 FiO2 21.0 % 09/28/18 18:33 Sodium 131 mmol/l (132-148) L 09/29/18 06:00 Potassium 4.0 MMOL/L (3.6-5.0) 09/29/18 06:00 Chloride 98 mmol/L (98-107) 09/29/18 06:00 Carbon Dioxide 23 mmol/L (22-30) 09/29/18 06:00 Anion Gap 14 (10-20) 09/29/18 06:00 BUN 17 mg/dl (9-20) 09/29/18 06:00 Creatinine 1.3 mg/dl (0.8-1.5) 09/29/18 06:00 Est GFR ( Amer) > 60 09/29/18 06:00 Est GFR (Non-Af Amer) 54 09/29/18 06:00 POC Glucose (mg/dL) 270 mg/dL (65-110) H 09/29/18 10:34 Random Glucose 130 mg/dL (75-110) H 09/29/18 06:00 Calcium 8.6 mg/dL (8.4-10.2) 09/29/18 06:00 Total Bilirubin 0.5 mg/dl (0.2-1.3) 09/28/18 12:40 AST 31 U/L (17-59) 09/28/18 12:40 ALT 23 U/L (21-72) 09/28/18 12:40 Alkaline Phosphatase 47 U/L (38-126) 09/28/18 12:40 Troponin I < 0.0120 ng/mL (0.00-0.120) 09/28/18 12:40 NT-Pro-B Natriuret Pep 1360 pg/ml (0-900) H 09/28/18 12:40 Total Protein 8.9 G/DL (6.3-8.2) H 09/28/18 12:40 Albumin 4.3 g/dL (3.5-5.0) 09/28/18 12:40 Globulin 4.6 gm/dL (2.2-3.9) H 09/28/18 12:40 Albumin/Globulin Ratio 0.9 (1.0-2.1) L 09/28/18 12:40 Venous Blood Potassium 4.5 mmol/L (3.6-5.2) 09/28/18 18:33 Urine Color Yellow (YELLOW) 09/28/18 18:50 Urine Clarity Clear (Clear) 09/28/18 18:50 Urine pH 6.0 (5.0-8.0) 09/28/18 18:50 Ur Specific [place] 1.009 (1.003-1.030) 09/28/18 18:50 Urine Protein 30 mg/dL (NEGATIVE) 09/28/18 18:50 Urine Glucose (UA) Neg mg/dL (NEGATIVE) 09/28/18 18:50 Urine Ketones Negative mg/dL (NEGATIVE) 09/28/18 18:50 Urine Blood Negative (NEGATIVE) 09/28/18 18:50 Urine Nitrate Negative (NEGATIVE) 09/28/18 18:50 Urine Bilirubin Negative (NEGATIVE) 09/28/18 18:50 Urine Urobilinogen 0.2-1.0 mg/dL (0.2-1.0) 09/28/18 18:50 Ur Leukocyte Esterase Neg Dee/uL (Negative) 09/28/18 18:50 Urine RBC (Auto) 1 /hpf (0-3) 09/28/18 12:40 Urine Microscopic WBC < 1 /hpf (0-5) 09/28/18 18:50 Influenza Typ A,B (EIA) Negative for flu a/b (NEGATIVE) 09/28/18 12:40 - Hospital Course Hospital Course: 73 yo M with pmhx of HIV, HTN, DLD, DM presents to the ED with L clavicular pain. Admitted for observation for pneumonia. CXR: Trace right pleural effusion. Elevated right hemidiaphragm noted. Linear atelectasis noted right base. No definite infiltrate bilaterally. CT CHEST: 1. Unremarkable CT pulmonary angiogram. No pulmonary embolus. 2. Small right pleural effusion. 3. Right middle lobe, right lower lobe infiltrates. 4. Redemonstration right lobe hepa tic mass. Pt remained afebrile, WBC wnl, saturating 99% on room air. Medically cleared for DC to home on PO antibiotics. Recommend follow up with Dr Huff TueOctober 02. Discharge Exam - Head Exam Head Exam: ATRAUMATIC, NORMAL INSPECTION, NORMOCEPHALIC - Eye Exam Eye Exam: Normal appearance - ENT Exam ENT Exam: Mucous Membranes Moist - Respiratory Exam Respiratory Exam: NORMAL BREATHING PATTERN. absent: Wheezes, Respiratory Distress - Cardiovascular Exam Cardiovascular Exam: REGULAR RHYTHM - GI/Abdominal Exam GI & Abdominal Exam: Normal Bowel Sounds, Soft. absent: Tenderness - Neurological Exam Neurological exam: Alert, Normal Gait, Oriented x3 - Psychiatric Exam Psychiatric exam: Normal Affect, Normal Mood - Skin Skin Exam: Dry, Normal Color, Warm Discharge Plan - Discharge Medications Prescriptions: Azithromycin [Zithromax Tri-Alphonso] 500 mg PO DAILY #3 tablet levoFLOXacin 500 mg in D5W [Levaquin 500MG] 500 mg IVPB DAILY #14 bag - Follow Up Plan Condition: FAIR Disposition: HOME/ ROUTINE Instructions: Community-Acquired Pneumonia, Adult (DC), Normocytic Normochromic Anemia (DC) Additional Instructions: follow up appointment with PMD Dr Huff on tuesdayoctober 02 at 11:30am Referrals: Xavier Huff [Medical Doctor] - <Marlon Venegas D - Last Filed: 09/29/18 13:32> Provider - Provider Date of Admission: 09/28/18 17:55 Attending physician: Shannan Metzger MD Hospital Course - Lab Results Lab Results: Most Recent Lab Values WBC 8.6 K/uL (4.8-10.8) 09/29/18 06:00 RBC 3.97 Mil/uL (4.40-5.90) L 09/29/18 06:00 Hgb 7.5 g/dL (12.0-18.0) L 09/29/18 06:00 Hct 23.2 % (35.0-51.0) L 09/29/18 06:00 MCV 58.3 fl (80.0-94.0) L 09/29/18 06:00 MCH 18.8 pg (27.0-31.0) L 09/29/18 06:00 MCHC 32.3 g/dL (33.0-37.0) L 09/29/18 06:00 RDW 16.5 % (11.5-14.5) H 09/29/18 06:00 Plt Count 296 K/uL (130-400) 09/29/18 06:00 MPV 8.5 fl (7.2-11.7) 09/29/18 06:00 Neut % (Auto) 76.6 % (50.0-75.0) H 09/29/18 06:00 Lymph % (Auto) 9.4 % (20.0-40.0) L 09/29/18 06:00 Gaston % (Auto) 13.2 % (0.0-10.0) H 09/29/18 06:00 Eos % (Auto) 0.5 % (0.0-4.0) 09/29/18 06:00 Baso % (Auto) 0.3 % (0.0-2.0) 09/29/18 06:00 Neut # (Auto) 6.6 K/uL (1.8-7.0) 09/29/18 06:00 Lymph # (Auto) 0.8 K/uL (1.0-4.3) L 09/29/18 06:00 Gaston # (Auto) 1.1 K/uL (0.0-0.8) H 09/29/18 06:00 Eos # (Auto) 0.0 K/uL (0.0-0.7) 09/29/18 06:00 Baso # (Auto) 0.0 K/uL (0.0-0.2) 09/29/18 06:00 Neutrophils % (Manual) 75 % (42-75) 09/28/18 12:40 Band Neutrophils % 2 % (0-2) 09/28/18 12:40 Lymphocytes % (Manual) 14 % (20-50) L 09/28/18 12:40 Monocytes % (Manual) 6 % (0-10) 09/28/18 12:40 Basophils % (Manual) 1 % (0-2) 09/28/18 12:40 Metamyelocytes % 1 % (0-0) H 09/28/18 12:40 Myelocytes % 1 % (0-0) H 09/28/18 12:40 Platelet Estimate Normal (NORMAL) 09/28/18 12:40 Large Platelets Present 09/28/18 12:40 Hypochromasia (manual) Slight 09/28/18 12:40 Poikilocytosis (manual Slight 09/28/18 12:40 Anisocytosis (manual) Slight 09/28/18 12:40 Microcytosis (manual) Moderate 09/28/18 12:40 Spherocytes Slight 09/28/18 12:40 Target Cells Slight 09/28/18 12:40 Tear Drop Cells Slight 09/28/18 12:40 Ovalocytes Slight 09/28/18 12:40 Schistocytes Slight 09/28/18 12:40 PT 14.8 Seconds (9.8-13.1) H 09/28/18 12:40 INR 1.3 09/28/18 12:40 APTT 33.8 Seconds (25.6-37.1) 09/28/18 12:40 D-Dimer, Quantitative 967 ng/mlDDU (0-230) H 09/28/18 12:40 pO2 33 mm/Hg (30-55) 09/28/18 18:33 VBG pH 7.48 (7.32-7.43) H 09/28/18 18:33 VBG pCO2 35 mmHg (40-60) L 09/28/18 18:33 VBG HCO3 26.3 mmol/L 09/28/18 18:33 VBG Total CO2 27.2 mmol/L (22-28) 09/28/18 18:33 VBG O2 Sat (Calc) 74.8 % (40-65) H 09/28/18 18:33 VBG Base Excess 2.8 mmol/L (0.0-2.0) H 09/28/18 18:33 VBG Potassium 4.5 mmol/L (3.6-5.2) 09/28/18 18:33 Sodium 129.0 mmol/L (132-148) L 09/28/18 18:33 Chloride 96.0 mmol/L (98-107) L 09/28/18 18:33 Glucose 189 mg/dL (75-110) H 09/28/18 18:33 Lactate 1.4 mmol/L (0.7-2.1) 09/28/18 18:33 FiO2 21.0 % 09/28/18 18:33 Sodium 131 mmol/l (132-148) L 09/29/18 06:00 Potassium 4.0 MMOL/L (3.6-5.0) 09/29/18 06:00 Chloride 98 mmol/L (98-107) 09/29/18 06:00 Carbon Dioxide 23 mmol/L (22-30) 09/29/18 06:00 Anion Gap 14 (10-20) 09/29/18 06:00 BUN 17 mg/dl (9-20) 09/29/18 06:00 Creatinine 1.3 mg/dl (0.8-1.5) 09/29/18 06:00 Est GFR ( Amer) > 60 09/29/18 06:00 Est GFR (Non-Af Amer) 54 09/29/18 06:00 POC Glucose (mg/dL) 270 mg/dL (65-110) H 09/29/18 10:34 Random Glucose 130 mg/dL (75-110) H 09/29/18 06:00 Calcium 8.6 mg/dL (8.4-10.2) 09/29/18 06:00 Total Bilirubin 0.5 mg/dl (0.2-1.3) 09/28/18 12:40 AST 31 U/L (17-59) 09/28/18 12:40 ALT 23 U/L (21-72) 09/28/18 12:40 Alkaline Phosphatase 47 U/L (38-126) 09/28/18 12:40 Troponin I < 0.0120 ng/mL (0.00-0.120) 09/28/18 12:40 NT-Pro-B Natriuret Pep 1360 pg/ml (0-900) H 09/28/18 12:40 Total Protein 8.9 G/DL (6.3-8.2) H 09/28/18 12:40 Albumin 4.3 g/dL (3.5-5.0) 09/28/18 12:40 Globulin 4.6 gm/dL (2.2-3.9) H 09/28/18 12:40 Albumin/Globulin Ratio 0.9 (1.0-2.1) L 09/28/18 12:40 Venous Blood Potassium 4.5 mmol/L (3.6-5.2) 09/28/18 18:33 Urine Color Yellow (YELLOW) 09/28/18 18:50 Urine Clarity Clear (Clear) 09/28/18 18:50 Urine pH 6.0 (5.0-8.0) 09/28/18 18:50 Ur Specific [place] 1.009 (1.003-1.030) 09/28/18 18:50 Urine Protein 30 mg/dL (NEGATIVE) 09/28/18 18:50 Urine Glucose (UA) Neg mg/dL (NEGATIVE) 09/28/18 18:50 Urine Ketones Negative mg/dL (NEGATIVE) 09/28/18 18:50 Urine Blood Negative (NEGATIVE) 09/28/18 18:50 Urine Nitrate Negative (NEGATIVE) 09/28/18 18:50 Urine Bilirubin Negative (NEGATIVE) 09/28/18 18:50 Urine Urobilinogen 0.2-1.0 mg/dL (0.2-1.0) 09/28/18 18:50 Ur Leukocyte Esterase Neg Dee/uL (Negative) 09/28/18 18:50 Urine RBC (Auto) 1 /hpf (0-3) 09/28/18 12:40 Urine Microscopic WBC < 1 /hpf (0-5) 09/28/18 18:50 Influenza Typ A,B (EIA) Negative for flu a/b (NEGATIVE) 09/28/18 12:40 Attending/Attestation - Attestation I have personally seen and examined this patient.: Yes I have fully participated in the care of the patient.: Yes I have reviewed all pertinent clinical information, including history, physical exam and plan: Yes Notes (Text): 09/29/18 13:31 Patient seen and examined with resident. Case discussed and agreed with assessment. Patient discharged in stable condition
[2018-09-29 16:21] VITALS: BP 136/82; PULSE 67; TEMP 99; O2SAT 97
[2018-10-01 06:01] LABS: % CD4 (T HELPER CELL) 29 Percent (30-61); % CD8 (SUPPRESSOR T CELL) 46 Percent (12-42); ABSOLUTE CD4 CELLS 235 Cells/mcL (490-1740); ABSOLUTE CD8 CELLS 375 Cells/mcL (180-1170); ABSOLUTE LYMPHOCYTES 824 Cells/mcL (850-3900); HELPER/SUPPRESSOR RATIO 0.63 Ratio (0.86-5.00)
== END 2018-09-29 16:46 | disposition home or self-care (01) ==
LOC: H.ER 11:27 → H.ERHOLD 17:55 → H.MEDSURG1 21:48
PROVIDERS: ADMIT Family Medicine; ATTEND Family Medicine
DX: J18.9 Pneumonia, unspecified organism (principal); J98.11 Atelectasis; I11.0 Hypertensive heart disease with heart failure; I50.9 Heart failure, unspecified; E11.8 Type 2 diabetes mellitus with unspecified complications; E78.00 Pure hypercholesterolemia, unspecified; Z21 Asymptomatic human immunodeficiency virus [HIV] infection status; Z79.4 Long term (current) use of insulin; Z79.82 Long term (current) use of aspirin
CPT/HCPCS: 36415; 71046; 71275; 80048; 80053; 81003; 82803; 82948; 83880; 84484; 85025; 85378; 85610; 85730; 86360; 86738; 87040; 87536; 87804; 93005; 96365; 99285; G0378; J0456; J0696; J1650; J7030; Q9967

== ENCOUNTER 2018-10-15 15:28 | Observation (INO) | payer MEDICARE ==
[2018-10-15 15:29] VITALS: BMI 22.3
[2018-10-15 16:32] LABS: VENOUS BLOOD GAS BASE EXCESS -1.4 mmol/L (0.0-2.0); VENOUS BLOOD GAS PCO2 36 mmHg (40-60); VENOUS BLOOD GAS PO2 45 mm/Hg (30-55); VENOUS BLOOD PH 7.41 (7.32-7.43)
[2018-10-15 16:39] LABS: EOS # 0.1 K/uL (0.0-0.7); EOS % 0.8 % (0.0-4.0); LYMPH # 0.9 K/uL (1.0-4.3); MONO # 0.6 K/uL (0.0-0.8)
--- NOTE | 2018-10-15 16:39 | ED PDOC ---
Syncope/Near Syncope/Dizziness Time Seen by Provider: 10/15/18 15:40 Chief Complaint (Nursing): Dizziness/Lightheaded Chief Complaint (Provider): Dizziness/Lightheaded History Per: Patient History/Exam Limitations: no limitations Onset/Duration Of Symptoms: Persistent (x1 month) Current Symptoms Are (Timing): Still Present Additional Complaint(s): 73 year old male with medical history of HIV, HTN, diabetes, and dyslipidemia, presents to the emergency department with a complaint of generalized weakness and intermittent abdominal pain ongoing for 1 month. Patient was recently admitted in-patient for pneumonia and had bloodwork performed on 10/13/18. She was called today with results of 5.9 hemoglobin. Hemoglobin was noted at 8.0 during admission. Of note, patient has history of anemia but denies past transfusions, abdominal bleed, black or bloody stools. Past Medical History Reviewed: Historical Data, Nursing Documentation, Vital Signs Vital Signs: Last Vital Signs Temp 98.3 F 10/15/18 15:35 Pulse 106 H 10/15/18 15:35 Resp 18 10/15/18 15:35 BP 152/65 H 10/15/18 15:35 Pulse Ox 95 10/15/18 15:35 Primary Care Provider: Xavier Huff - Medical History PMH: Anemia, Colonic Polyps, Gall Bladder Disease, HIV, HTN, Hypercholesterolemia, Pancreatitis, Chronic Kidney Disease (proteinuria renal insufficiency) - Surgical History Surgical History: Cholecystectomy - Family History Family History: States: Other Other Family History: Noncontributory - Home Medications Home Medications: Ambulatory Orders Medication Instructions Recorded Darunavir/Cobicistat [Prezcobix 1 tab PO DAILY 05/08/18 800 mg-150 mg Tablet] Enalapril Maleate [Vasotec] 2.5 mg PO DAILY 05/08/18 Fenofibrate Nanocrystallized 1 tab PO DAILY 05/08/18 [Tricor] Furosemide [Lasix] 20 mg PO DAILY 05/08/18 GlipiZIDE [Glucotrol] 5 mg PO DAILY 05/08/18 Insulin Detemir [Levemir] 30 unit SC HS 05/08/18 Lamivudine 300 mg PO DAILY 05/08/18 Lipase/Protease/Amylase [Creon Dr 1 tab PO TID 05/08/18 24,000 Units Capsule] Bradford-3 Fatty Acids [Bradford-3] 1 cap PO BID 05/08/18 Vitamin B Complex [Berroca] 1 tab PO DAILY 05/08/18 Aspirin [Adult Aspirin] 81 mg PO DAILY 05/29/18 Ascorbic Acid [Vitamin C] 1,000 mg PO DAILY 10/15/18 Budesonide/Formoterol Fumarate 1 aer IH BID 10/15/18 [Symbicort] Ferrous Sulfate [High Potency Iron] 134 mg PO DAILY 10/15/18 Sitagliptin Phos/Metformin HCl 1 each PO BID 10/15/18 [Janumet 50-1,000 mg Tablet] Terazosin HCl 4 mg PO HS 10/15/18 - Allergies Allergies/Adverse Reactions: Allergies Allergy/AdvReac Type Severity Reaction Status Date / Time No Known Allergies Allergy Verified 10/15/18 15:32 Review of Systems ROS Statement: Except As Marked, All Systems Reviewed And Found Negative Constitutional: Positive for: Weakness Gastrointestinal: Positive for: Abdominal Pain. Negative for: Melena, Hematochezia Physical Exam - Reviewed Nursing Documentation Reviewed: Yes Vital Signs Reviewed: Yes - Physical Exam Appears: Positive for: Non-toxic, No Acute Distress Head Exam: Positive for: ATRAUMATIC, NORMOCEPHALIC Skin: Positive for: Pallor Eye Exam: Positive for: EOMI, PERRL, Conjunctival injection (pallor) ENT: Positive for: Other (tacky mucous membranes) Neck: Positive for: Painless ROM, Supple Cardiovascular/Chest: Positive for: Regular Rate, Rhythm. Negative for: Murmur Respiratory: Positive for: Normal Breath Sounds. Negative for: Respiratory Distress Gastrointestinal/Abdominal: Positive for: Soft. Negative for: Tenderness, Mass, Distended, Guarding Rectal: Positive for: Rectal Tone Is: (normal), Other (ALEXA Herring present as quality control coordinator: (-) stool obtained for occult). Negative for: Hemorrhoids (or gross blood) Extremity: Positive for: Normal ROM. Negative for: Deformity Lymphatic: Negative for: Adenopathy Neurological/Psych: Positive for: Awake, Alert. Negative for: Motor/Sensory Deficits - Laboratory Results Result Diagrams: 10/15/18 17:13 10/15/18 16:24 Lab Results: pO2 45 mm/Hg (30-55) 10/15/18 16:26 VBG pH 7.41 (7.32-7.43) 10/15/18 16:26 VBG pCO2 36 mmHg (40-60) L 10/15/18 16:26 VBG HCO3 23.4 mmol/L 10/15/18 16:26 VBG Total CO2 23.9 mmol/L (22-28) 10/15/18 16:26 VBG O2 Sat (Calc) 85.0 % (40-65) H 10/15/18 16:26 VBG Base Excess -1.4 mmol/L (0.0-2.0) L 10/15/18 16:26 VBG Potassium 4.6 mmol/L (3.6-5.2) 10/15/18 16:26 Sodium 130.0 mmol/L (132-148) L 10/15/18 16:26 Chloride 96.0 mmol/L (98-107) L 10/15/18 16:26 Glucose 157 mg/dL (75-110) H 10/15/18 16:26 Lactate 4.3 mmol/L (0.7-2.1) H* 10/15/18 16:26 FiO2 21.0 % 10/15/18 16:26 Blood Gas Comments Lac=4.3 10/15/18 16:26 Crit Value Called To anita Fuentes 10/15/18 16:26 Crit Value Called By 10/15/18 16:26 Crit Value Read Back Y 10/15/18 16:26 Blood Gas Notified Time 1632 10/15/18 16:26 - ECG O2 Sat by Pulse Oximetry: 95 (RA) Pulse Ox Interpretation: Normal Medical Decision Making Medical Decision Making: Initial Impression: anemia Initial Plan: * Packed cells leukoreduced * Labs * EKG * CXR * Blood culture * Occult blood, stool 6p Initial lactic acid 4 on ABG and Hgb 8.4. Repeat of both 4 and 8.2 respectively. Pt has orthostatic vitals. Will need hydration and possibly blood transfusion for stabilization. BARNEY Crisostomo Hospitalist for hospitalization. BARNEY pt findings and plan of care. 730p BARNEY Mcdaniel Hematology. Orders placed as per discussion. Transfusion ordered. BARNEY pt risks/benefits and consent signed. Scribe Attestation: Documented by Annmarie Peck, acting as a scribe for Anita Barragan MD. Provider Scribe Attestation: All medical record entries made by the Scribe were at my direction and pers onally dictated by me. I have reviewed the chart and agree that the record accurately reflects my personal performance of the history, physical exam, medical decision making, and the department course for this patient. I have also personally directed, reviewed, and agree with the discharge instructions and disposition. Disposition - Clinical Impression Clinical Impression: Anemia, Dehydration - Disposition Disposition Time: 18:00 Condition: FAIR - Pt Status Changed To: Hospital Disposition Of: Observation - POA Present On Arrival: None
[2018-10-15 16:46] LABS: BASO % 0.3 % (0.0-2.0); HEMOGLOBIN 8.4 g/dL (12.0-18.0); LYMPH % 11.4 % (20.0-40.0); MEAN CELL VOLUME 58.7 fl (80.0-94.0); MEAN CORPUSCULAR HGB CONC 32.4 g/dL (33.0-37.0); MEAN PLATELET VOLUME 8.6 fl (7.2-11.7); MONO % 8.2 % (0.0-10.0); NEUT % 79.3 % (50.0-75.0); RBC 4.39 Mil/uL (4.40-5.90); WHITE BLOOD COUNT 7.6 K/uL (4.8-10.8)
[2018-10-15 16:51] LABS: INR 1.2; PROTHROMBIN TIME 13.1 Seconds (9.8-13.1)
[2018-10-15 16:52] LABS: IRON 53 ug/dL (49-181)
[2018-10-15 16:54] LABS: PARTIAL THROMBOPLASTIN TIME 37.2 Seconds (25.6-37.1)
--- NOTE | 2018-10-15 16:55 | RAD ---
Date of service: 10/15/2018 HISTORY: weakness COMPARISON: 09/28/2018 TECHNIQUE: 1 view obtained. FINDINGS: LUNGS: Linear scar/atelectasis at right base. No acute infiltrate. PLEURA: No pleural effusion. Mild nonspecific elevation of the right hemidiaphragm. CARDIOVASCULAR: No aortic atherosclerotic calcification present. Normal cardiac size. No pulmonary vascular congestion. OSSEOUS STRUCTURES: No significant abnormalities. VISUALIZED UPPER ABDOMEN: Normal. OTHER FINDINGS: None. IMPRESSION: No acute infiltrate.
[2018-10-15 17:05] LABS: ALBUMIN 4.5 g/dL (3.5-5.0); CALCIUM 9.5 mg/dL (8.4-10.2)
[2018-10-15 17:06] LABS: % IRON SATURATION 18 % (20-55); TOTAL IRON BINDING CAPACITY 290 ug/dL (250-450)
[2018-10-15 17:17] LABS: BASO % 0.6 % (0.0-2.0); EOS # 0.1 K/uL (0.0-0.7); EOS % 0.8 % (0.0-4.0); HEMOGLOBIN 8.2 g/dL (12.0-18.0); LYMPH % 12.7 % (20.0-40.0); MEAN CELL VOLUME 58.5 fl (80.0-94.0); MEAN CORPUSCULAR HEMOGLOBIN 18.8 pg (27.0-31.0); MEAN CORPUSCULAR HGB CONC 32.2 g/dL (33.0-37.0); MEAN PLATELET VOLUME 8.4 fl (7.2-11.7); MONO # 0.7 K/uL (0.0-0.8); MONO % 8.7 % (0.0-10.0); NEUT # 5.9 K/uL (1.8-7.0); NEUT % 77.2 % (50.0-75.0); NRBC % 0.1 % (0.0-0.0); RBC 4.35 Mil/uL (4.40-5.90); RED CELL DISTRIBUTION WIDTH 17.5 % (11.5-14.5); WHITE BLOOD COUNT 7.6 K/uL (4.8-10.8)
[2018-10-15] MEDS ORDERED: Sodium Chloride 0.9% 1,000 ML IV STA (18:17)
--- NOTE | 2018-10-15 19:04 | CP.PCM.HP ---
<Chiara Canas - Last Filed: 10/15/18 20:43> History of Present Illness - History of Present Illness History of Present Illness: CC: weakness, fatigue and PMD Hb of 5.9 HPI: 73 YO Male with PMHx, HTN, NIDDM, HIV, dyslipidemia, thalassemia presents to ED from PMD for weakness, fatigue and sent from PMD with a hb of 5.9. Patient was seen by the PMD for weakness and fatigue for the past few days, he underwent blood work and was called by PMD today due to critical blood-work with hb of 5.9. Patient endorsing feeling fatigue for the past coupe of days and has been worsening. Has hx of thalassemia, takes PO Iron at home and has never needed any transfusions in the past. PMHx: HTN, NIDDM, HIV, dyslipidemia, thalassemia SurgHx: s/p cholesectomy FHx: DM, HTN SHx: denies ETOH, smoking (hx of smoking) and [place] drug use NKDA Present on Admission - Present on Admission Any Indicators Present on Admission: No Review of Systems - Constitutional Constitutional: Fatigue, Weakness. absent: Chills, Fever - Cardiovascular Cardiovascular: absent: Chest Pain, Dyspnea, Palpitations - Respiratory Respiratory: absent: Cough, Dyspnea - Gastrointestinal Gastrointestinal: absent: Abdominal Pain - Genitourinary Genitourinary: absent: Dysuria - Neurological Neurological: absent: Headaches 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) - ENDOCRINE/METABOLIC Hx Endocrine Disorders: Yes Hx Diabetes Mellitus Type 2: Yes - HEMATOLOGICAL/ONCOLOGICAL Hx Anemia: Yes Hx Human Immunodeficiency Virus (HIV): Yes - INTEGUMENTARY Hx Dermatological Problems: No - MUSCULOSKELETAL/RHEUMATOLOGICAL Hx Musculoskeletal Disorders: No Hx Falls: No - GASTROINTESTINAL Hx Gall Bladder Disease: Yes Hx Pancreatitis: Yes - GENITOURINARY/GYNECOLOGICAL Hx Genitourinary Disorders: Yes - PSYCHIATRIC Hx Psychophysiologic Disorder: No Hx Substance Use: No - SURGICAL HISTORY Hx Cholecystectomy: Yes - ANESTHESIA Hx Anesthesia: Yes Hx Anesthesia Reactions: No Hx Malignant Hyperthermia: No Meds Allergies/Adverse Reactions: Allergies Allergy/AdvReac Type Severity Reaction Status Date / Time No Known Allergies Allergy Verified 10/15/18 15:32 Physical Exam - Constitutional Appears: No Acute Distress - Head Exam Head Exam: NORMAL INSPECTION - Eye Exam Eye Exam: EOMI, Normal appearance - ENT Exam ENT Exam: Mucous Membranes Moist - Respiratory Exam Respiratory Exam: Clear to Auscultation Bilateral, NORMAL BREATHING PATTERN. absent: Wheezes - Cardiovascular Exam Cardiovascular Exam: REGULAR RHYTHM, +S1, +S2 - GI/Abdominal Exam GI & Abdominal Exam: Distended, Normal Bowel Sounds, Soft. absent: Tenderness - Extremities Exam Extremities exam: Positive for: normal inspection. Negative for: calf tenderness, pedal edema - Back Exam Back exam: NORMAL INSPECTION - Neurological Exam Neurological exam: Alert, Oriented x3 - Psychiatric Exam Psychiatric exam: Normal Mood - Skin Skin Exam: Pallor, Warm Results - Vital Signs Recent Vital Signs: Last Vital Signs Temp 98.3 F 10/15/18 15:35 Pulse 94 H 10/15/18 16:36 Resp 20 10/15/18 16:36 BP 152/65 H 10/15/18 15:35 Pulse Ox 95 10/15/18 18:34 - Labs Result Diagrams: 10/15/18 17:13 10/15/18 16:24 Labs: Laboratory Results - last 24 hr 10/15/18 10/15/18 10/15/18 16:00 16:24 16:24 WBC 7.6 RBC 4.39 L Hgb 8.4 L Hct 25.8 L MCV 58.7 L MCH 19.0 L MCHC 32.4 L RDW 18.0 H Plt Count 412 H D MPV 8.6 Neut % (Auto) 79.3 H Lymph % (Auto) 11.4 L [place] % (Auto) 8.2 Eos % (Auto) 0.8 Baso % (Auto) 0.3 Neut # (Auto) 6.0 Lymph # (Auto) 0.9 L [place] # (Auto) 0.6 Eos # (Auto) 0.1 Baso # (Auto) 0.0 PT INR APTT pO2 VBG pH VBG pCO2 VBG HCO3 VBG Total CO2 VBG O2 Sat (Calc) VBG Base Excess VBG Potassium Glucose Lactate FiO2 Blood Gas Comments Crit Value Called To Crit Value Called By Crit Value Read Back Blood Gas Notified Time Sodium Potassium Chloride Carbon Dioxide Anion Gap BUN Creatinine Est GFR ( Amer) Est GFR (Non-Af Amer) Random Glucose Lactic Acid Calcium Phosphorus Magnesium Iron TIBC % Saturation Ferritin Total Bilirubin AST ALT Alkaline Phosphatase Total Protein Albumin Globulin Albumin/Globulin Ratio Vitamin B12 Venous Blood Potassium Stool Occult Blood Negative Blood Type A POSITIVE Blood Type Confirm Antibody Screen Negative Crossmatch See Detail BBK History Checked No verified bt 10/15/18 10/15/18 10/15/18 16:24 16:24 16:24 WBC RBC Hgb Hct MCV MCH MCHC RDW Plt Count MPV Neut % (Auto) Lymph % (Auto) [place] % (Auto) Eos % (Auto) Baso % (Auto) Neut # (Auto) Lymph # (Auto) [place] # (Auto) Eos # (Auto) Baso # (Auto) PT 13.1 INR 1.2 APTT 37.2 H pO2 VBG pH VBG pCO2 VBG HCO3 VBG Total CO2 VBG O2 Sat (Calc) VBG Base Excess VBG Potassium Glucose Lactate FiO2 Blood Gas Comments Crit Value Called To Crit Value Called By Crit Value Read Back Blood Gas Notified Time Sodium 131 L Potassium 4.8 Chloride 93 L Carbon Dioxide 23 Anion Gap 20 BUN 25 H Creatinine 1.5 Est GFR ( Amer) 56 Est GFR (Non-Af Amer) 46 Random Glucose 159 H Lactic Acid Calcium 9.5 Phosphorus 3.6 Magnesium 1.7 Iron 53 TIBC 290 % Saturation 18 L Ferritin 184.0 Total Bilirubin 0.3 AST 35 ALT 13 L D Alkaline Phosphatase 49 Total Protein 9.0 H Albumin 4.5 Globulin 4.6 H Albumin/Globulin Ratio 1.0 Vitamin B12 572 Venous Blood Potassium Stool Occult Blood Blood Type Blood Type Confirm Antibody Screen Crossmatch BBK History Checked 10/15/18 10/15/18 10/15/18 16:26 17:05 17:13 WBC 7.6 RBC 4.35 L Hgb 8.2 L Hct 25.5 L MCV 58.5 L MCH 18.8 L MCHC 32.2 L RDW 17.5 H Plt Count 397 MPV 8.4 Neut % (Auto) 77.2 H Lymph % (Auto) 12.7 L [place] % (Auto) 8.7 Eos % (Auto) 0.8 Baso % (Auto) 0.6 Neut # (Auto) 5.9 Lymph # (Auto) 1.0 [place] # (Auto) 0.7 Eos # (Auto) 0.1 Baso # (Auto) 0.0 PT INR APTT pO2 45 VBG pH 7.41 VBG pCO2 36 L VBG HCO3 23.4 VBG Total CO2 23.9 VBG O2 Sat (Calc) 85.0 H VBG Base Excess -1.4 L VBG Potassium 4.6 Glucose 157 H Lactate 4.3 H* FiO2 21.0 Blood Gas Comments Lac=4.3 Crit Value Called To anita Fuentes Crit Value Called By 22 Crit Value Read Back Y Blood Gas Notified Time 1632 Sodium 130.0 L Potassium Chloride 96.0 L Carbon Dioxide Anion Gap BUN Creatinine Est GFR ( Amer) Est GFR (Non-Af Amer) Random Glucose Lactic Acid Calcium Phosphorus Magnesium Iron TIBC % Saturation Ferritin Total Bilirubin AST ALT Alkaline Phosphatase Total Protein Albumin Globulin Albumin/Globulin Ratio Vitamin B12 Venous Blood Potassium 4.6 Stool Occult Blood Blood Type Blood Type Confirm A POSITIVE Antibody Screen Crossmatch BBK History Checked 10/15/18 17:13 WBC RBC Hgb Hct MCV MCH MCHC RDW Plt Count MPV Neut % (Auto) Lymph % (Auto) [place] % (Auto) Eos % (Auto) Baso % (Auto) Neut # (Auto) Lymph # (Auto) [place] # (Auto) Eos # (Auto) Baso # (Auto) PT INR APTT pO2 VBG pH VBG pCO2 VBG HCO3 VBG Total CO2 VBG O2 Sat (Calc) VBG Base Excess VBG Potassium Glucose Lactate FiO2 Blood Gas Comments Crit Value Called To Crit Value Called By Crit Value Read Back Blood Gas Notified Time Sodium Potassium Chloride Carbon Dioxide Anion Gap BUN Creatinine Est GFR ( Amer) Est GFR (Non-Af Amer) Random Glucose Lactic Acid 4.1 H* Calcium Phosphorus Magnesium Iron TIBC % Saturation Ferritin Total Bilirubin AST ALT Alkaline Phosphatase Total Protein Albumin Globulin Albumin/Globulin Ratio Vitamin B12 Venous Blood Potassium Stool Occult Blood Blood Type Blood Type Confirm Antibody Screen Crossmatch BBK History Checked Assessment & Plan - Assessment and Plan (Free Text) Assessment: Assessment/Plan: 73 YO Male with PMHx, HTN, NIDDM, HIV, dyslipidemia, thalassemia is admitted for symptomatic anemia and dehydration. Microcytic anemia, acute on chronic -hx of thalassemia -symptomatic anemia -Hem/onc consulted;1 unit f PRBC, hb electrphoresis, retic count -hb electroporesis ordered -will transfuse with 1 unit of PRBC as ordered -will start folic acid daily Dehydration -hyponatriemia/hypocholoremia -elevated BUN -IV fluids, PRBC -follow up AM labs Lactic acidosis -likely 2.2 to dehydration -infection less likely, will follow up procalcalcitonin -IV fluids HIV -CD4 235 (09/2018) and HIV viral load undetectable -c.w home meds HTN/dyslipidimia -chronic, controlled -c/w home meds NIDDM -chronic -c/w home meds -low sliding scale, hypoglycemia DVT prolx -Lovenox SC <Alfreda Crisostomo - Last Filed: 10/15/18 20:49> Results - Vital Signs Recent Vital Signs: Last Vital Signs Temp 98.3 F 10/15/18 15:35 Pulse 94 H 10/15/18 16:36 Resp 20 10/15/18 16:36 BP 152/65 H 10/15/18 15:35 Pulse Ox 95 10/15/18 18:34 - Labs Result Diagrams: 10/15/18 17:13 10/15/18 16:24 Labs: Laboratory Results - last 24 hr 10/15/18 10/15/18 10/15/18 16:00 16:24 16:24 WBC 7.6 RBC 4.39 L Hgb 8.4 L Hct 25.8 L MCV 58.7 L MCH 19.0 L MCHC 32.4 L RDW 18.0 H Plt Count 412 H D MPV 8.6 Neut % (Auto) 79.3 H Lymph % (Auto) 11.4 L [place] % (Auto) 8.2 Eos % (Auto) 0.8 Baso % (Auto) 0.3 Neut # (Auto) 6.0 Lymph # (Auto) 0.9 L [place] # (Auto) 0.6 Eos # (Auto) 0.1 Baso # (Auto) 0.0 Retic Count PT INR APTT pO2 VBG pH VBG pCO2 VBG HCO3 VBG Total CO2 VBG O2 Sat (Calc) VBG Base Excess VBG Potassium Glucose Lactate FiO2 Blood Gas Comments Crit Value Called To Crit Value Called By Crit Value Read Back Blood Gas Notified Time Sodium Potassium Chloride Carbon Dioxide Anion Gap BUN Creatinine Est GFR ( Amer) Est GFR (Non-Af Amer) Random Glucose Lactic Acid Calcium Phosphorus Magnesium Iron TIBC % Saturation Ferritin Total Bilirubin AST ALT Alkaline Phosphatase Total Protein Albumin Globulin Albumin/Globulin Ratio Vitamin B12 Venous Blood Potassium Stool Occult Blood Negative Blood Type A POSITIVE Blood Type Confirm Antibody Screen Negative SASHA, Poly Interpret Crossmatch See Detail BBK History Checked No verified bt 10/15/18 10/15/18 10/15/18 16:24 16:24 16:24 WBC RBC Hgb Hct MCV MCH MCHC RDW Plt Count MPV Neut % (Auto) Lymph % (Auto) [place] % (Auto) Eos % (Auto) Baso % (Auto) Neut # (Auto) Lymph # (Auto) [place] # (Auto) Eos # (Auto) Baso # (Auto) Retic Count PT 13.1 INR 1.2 APTT 37.2 H pO2 VBG pH VBG pCO2 VBG HCO3 VBG Total CO2 VBG O2 Sat (Calc) VBG Base Excess VBG Potassium Glucose Lactate FiO2 Blood Gas Comments Crit Value Called To Crit Value Called By Crit Value Read Back Blood Gas Notified Time Sodium 131 L Potassium 4.8 Chloride 93 L Carbon Dioxide 23 Anion Gap 20 BUN 25 H Creatinine 1.5 Est GFR ( Amer) 56 Est GFR (Non-Af Amer) 46 Random Glucose 159 H Lactic Acid Calcium 9.5 Phosphorus 3.6 Magnesium 1.7 Iron 53 TIBC 290 % Saturation 18 L Ferritin 184.0 Total Bilirubin 0.3 AST 35 ALT 13 L D Alkaline Phosphatase 49 Total Protein 9.0 H Albumin 4.5 Globulin 4.6 H Albumin/Globulin Ratio 1.0 Vitamin B12 572 Venous Blood Potassium Stool Occult Blood Blood Type Blood Type Confirm Antibody Screen SASHA, Poly Interpret Crossmatch BBK History Checked 10/15/18 10/15/18 10/15/18 16:26 17:05 17:13 WBC 7.6 RBC 4.35 L Hgb 8.2 L Hct 25.5 L MCV 58.5 L MCH 18.8 L MCHC 32.2 L RDW 17.5 H Plt Count 397 MPV 8.4 Neut % (Auto) 77.2 H Lymph % (Auto) 12.7 L [place] % (Auto) 8.7 Eos % (Auto) 0.8 Baso % (Auto) 0.6 Neut # (Auto) 5.9 Lymph # (Auto) 1.0 [place] # (Auto) 0.7 Eos # (Auto) 0.1 Baso # (Auto) 0.0 Retic Count PT INR APTT pO2 45 VBG pH 7.41 VBG pCO2 36 L VBG HCO3 23.4 VBG Total CO2 23.9 VBG O2 Sat (Calc) 85.0 H VBG Base Excess -1.4 L VBG Potassium 4.6 Glucose 157 H Lactate 4.3 H* FiO2 21.0 Blood Gas Comments Lac=4.3 Crit Value Called To anita Fuentes Crit Value Called By 22 Crit Value Read Back Y Blood Gas Notified Time 1632 Sodium 130.0 L Potassium Chloride 96.0 L Carbon Dioxide Anion Gap BUN Creatinine Est GFR ( Amer) Est GFR (Non-Af Amer) Random Glucose Lactic Acid Calcium Phosphorus Magnesium Iron TIBC % Saturation Ferritin Total Bilirubin AST ALT Alkaline Phosphatase Total Protein Albumin Globulin Albumin/Globulin Ratio Vitamin B12 Venous Blood Potassium 4.6 Stool Occult Blood Blood Type Blood Type Confirm A POSITIVE Antibody Screen SASHA, Poly Interpret Crossmatch BBK History Checked 10/15/18 10/15/18 10/15/18 17:13 19:31 19:35 WBC RBC Hgb Hct MCV MCH MCHC RDW Plt Count MPV Neut % (Auto) Lymph % (Auto) [place] % (Auto) Eos % (Auto) Baso % (Auto) Neut # (Auto) Lymph # (Auto) [place] # (Auto) Eos # (Auto) Baso # (Auto) Retic Count 1.4 PT INR APTT pO2 VBG pH VBG pCO2 VBG HCO3 VBG Total CO2 VBG O2 Sat (Calc) VBG Base Excess VBG Potassium Glucose Lactate FiO2 Blood Gas Comments Crit Value Called To Crit Value Called By Crit Value Read Back Blood Gas Notified Time Sodium Potassium Chloride Carbon Dioxide Anion Gap BUN Creatinine Est GFR ( Amer) Est GFR (Non-Af Amer) Random Glucose Lactic Acid 4.1 H* Calcium Phosphorus Magnesium Iron TIBC % Saturation Ferritin Total Bilirubin AST ALT Alkaline Phosphatase Total Protein Albumin Globulin Albumin/Globulin Ratio Vitamin B12 Venous Blood Potassium Stool Occult Blood Blood Type Blood Type Confirm Antibody Screen SASHA, Poly Interpret Negative Crossmatch BBK History Checked Attending/Attestation - Attestation I have personally seen and examined this patient.: Yes I have fully participated in the care of the patient.: Yes I have reviewed all pertinent clinical information: Yes Notes (Text): Agree with findings and plan as above. 73 year old male PMH thalassemia, HIV, HTN, DM sent by PMD for Hgb 5.9, 8.2 in ED today, however weakness with palpitations, and orthostatic hypotension. Patient to be given fluids as well as a unit of blood, Dr. Mcdaniel on consult for Hematology, appreciated and followed.
[2018-10-15] MEDS ORDERED: Glucagon Recombinant 1 mg Inj IM PRN (20:14)
[2018-10-15] MEDS ORDERED: Dextrose 50% SYRINGE Inj (50 ml) IV PRN (20:14)
--- NOTE | 2018-10-15 21:32 | CP.PCM.CON ---
History of Present Illness - History of Present Illness History of Present Illness: 73 year old male with a history of HTN, DM, HL, HIV on HAART, unknown thalassemia, liver mass s/p biopsy x2 (non diagnostic, necrotic tissue), presenting with fatigue and anemia. The patient notes to experiencing progressive fatigue. He saw his PMD who ordered blood work. His hgb was found to be 5.9 and he was told to report to the ER. In the ER his hgb was found to be 8.3. He denies abnormal bleeding and bruising. His baseline hgb is around 11. He did have a colonoscopy a few months ago which he reports was unremarkable but was told to repeat in 6 months due to poor prep. Past medical history: HTN, DM, HL, HIV on HAART, liver mass Past surgical history: Cholecystectomy Family history: Brother had liver cancer Social history: Former tobacco Allergies: NKA Review of systems: All remaining review of systems including HEENT, cardiovascular, respiratory, gastrointestinal, genitourinary, musculoskeletal, d ermatologic, neurologic, and psychiatric are negative unless mentioned in the HPI. 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) - ENDOCRINE/METABOLIC Hx Endocrine Disorders: Yes Hx Diabetes Mellitus Type 2: Yes - HEMATOLOGICAL/ONCOLOGICAL Hx Anemia: Yes Hx Human Immunodeficiency Virus (HIV): Yes - INTEGUMENTARY Hx Dermatological Problems: No - MUSCULOSKELETAL/RHEUMATOLOGICAL Hx Musculoskeletal Disorders: No Hx Falls: No - GASTROINTESTINAL Hx Gall Bladder Disease: Yes Hx Pancreatitis: Yes - GENITOURINARY/GYNECOLOGICAL Hx Genitourinary Disorders: Yes - PSYCHIATRIC Hx Psychophysiologic Disorder: No Hx Substance Use: No - SURGICAL HISTORY Hx Cholecystectomy: Yes - ANESTHESIA Hx Anesthesia: Yes Hx Anesthesia Reactions: No Hx Malignant Hyperthermia: No Meds Allergies/Adverse Reactions: Allergies Allergy/AdvReac Type Severity Reaction Status Date / Time No Known Allergies Allergy Verified 10/15/18 15:32 - Medications Medications: Current Medications Aspirin (Ecotrin) 81 mg PO DAILY [facility] Dextrose (Dextrose 50% Inj) 0 ml IV STAT PRN; Protocol PRN Reason: Hypoglycemia Protocol Dextrose (Glutose 15) 0 gm PO ONCE PRN; Protocol PRN Reason: Hypoglycemia Protocol Enalapril Maleate (Vasotec) 2.5 mg PO DAILY [facility] Enoxaparin Sodium (Lovenox) 40 mg SC DAILY [facility]; Protocol Fenofibrate (Tricor) 1 mg PO DAILY [facility] Folic Acid (Folic Acid) 1 mg PO DAILY [facility] Furosemide (Lasix) 20 mg PO DAILY [facility] Glipizide (Glucotrol) 5 mg PO DAILY [facility] Glucagon (Glucagen Diagnostic Kit) 0 mg IM STAT PRN; Protocol PRN Reason: Hypoglycemia Protocol Home Med (Darunavir/Cobicistat [Prezcobix 800 Mg-150 Mg Tablet]) 1 tab PO DAILY [facility] Home Med (Ferrous Sulfate [High Potency Iron]) 134 mg PO DAILY [facility] Home Med (Lipase/Protease/Amylase [Creon Dr 24,000 Units Capsule]) 1 tab PO TID [facility] Home Med (Junior-3 Fatty Acids [Junior-3]) 1 cap PO BID [facility] Home Med (Vitamin B Complex [Berroca]) 1 tab PO DAILY [facility] Sodium Chloride (Sodium Chloride 0.9%) 1,000 mls @ 100 mls/hr IV .Q10H [facility] Stop: 10/16/18 07:59 Insulin Detemir (Levemir) 30 units SC HS [facility] Insulin Human Regular (Humulin R) 0 units SC [facility]; Protocol Lamivudine (Epivir) 300 mg PO DAILY [facility] Metformin HCl (Glucophage) 1,000 mg PO BID@0800,1700 [facility] Sitagliptin Phosphate (Januvia) 50 mg PO BID@0800,1700 [facility] Terazosin HCl (Hytrin) 4 mg PO HS [facility] Physical Exam - Head Exam Head Exam: ATRAUMATIC - Eye Exam Eye Exam: Normal appearance - ENT Exam ENT Exam: Mucous Membranes Dry - Respiratory Exam Respiratory Exam: NORMAL BREATHING PATTERN - Cardiovascular Exam Cardiovascular Exam: +S1, +S2 - GI/Abdominal Exam GI & Abdominal Exam: Normal Bowel Sounds - Extremities Exam Extremities exam: Positive for: normal inspection - Neurological Exam Neurological exam: Oriented x3 - Psychiatric Exam Psychiatric exam: Normal Affect, Normal Mood - Skin Skin Exam: Warm Results - Vital Signs Recent Vital Signs: Last Vital Signs Temp 98.3 F 10/15/18 15:35 Pulse 94 H 10/15/18 16:36 Resp 20 10/15/18 16:36 BP 152/65 H 10/15/18 15:35 Pulse Ox 95 10/15/18 18:34 - Labs Result Diagrams: 10/15/18 17:13 10/15/18 16:24 Labs: Laboratory Results - last 24 hr 10/15/18 10/15/18 10/15/18 16:00 16:24 16:24 WBC 7.6 RBC 4.39 L Hgb 8.4 L Hct 25.8 L MCV 58.7 L MCH 19.0 L MCHC 32.4 L RDW 18.0 H Plt Count 412 H D MPV 8.6 Neut % (Auto) 79.3 H Lymph % (Auto) 11.4 L [place] % (Auto) 8.2 Eos % (Auto) 0.8 Baso % (Auto) 0.3 Neut # (Auto) 6.0 Lymph # (Auto) 0.9 L [place] # (Auto) 0.6 Eos # (Auto) 0.1 Baso # (Auto) 0.0 Retic Count PT INR APTT pO2 VBG pH VBG pCO2 VBG HCO3 VBG Total CO2 VBG O2 Sat (Calc) VBG Base Excess VBG Potassium Glucose Lactate FiO2 Blood Gas Comments Crit Value Called To Crit Value Called By Crit Value Read Back Blood Gas Notified Time Sodium Potassium Chloride Carbon Dioxide Anion Gap BUN Creatinine Est GFR ( Amer) Est GFR (Non-Af Amer) Random Glucose Lactic Acid Calcium Phosphorus Magnesium Iron TIBC % Saturation Ferritin Total Bilirubin AST ALT Alkaline Phosphatase Total Protein Albumin Globulin Albumin/Globulin Ratio Vitamin B12 Venous Blood Potassium Stool Occult Blood Negative Blood Type A POSITIVE Blood Type Confirm Antibody Screen Negative SASHA, Poly Interpret Crossmatch See Detail BBK History Checked No verified bt 10/15/18 10/15/18 10/15/18 16:24 16:24 16:24 WBC RBC Hgb Hct MCV MCH MCHC RDW Plt Count MPV Neut % (Auto) Lymph % (Auto) [place] % (Auto) Eos % (Auto) Baso % (Auto) Neut # (Auto) Lymph # (Auto) [place] # (Auto) Eos # (Auto) Baso # (Auto) Retic Count PT 13.1 INR 1.2 APTT 37.2 H pO2 VBG pH VBG pCO2 VBG HCO3 VBG Total CO2 VBG O2 Sat (Calc) VBG Base Excess VBG Potassium Glucose Lactate FiO2 Blood Gas Comments Crit Value Called To Crit Value Called By Crit Value Read Back Blood Gas Notified Time Sodium 131 L Potassium 4.8 Chloride 93 L Carbon Dioxide 23 Anion Gap 20 BUN 25 H Creatinine 1.5 Est GFR ( Amer) 56 Est GFR (Non-Af Amer) 46 Random Glucose 159 H Lactic Acid Calcium 9.5 Phosphorus 3.6 Magnesium 1.7 Iron 53 TIBC 290 % Saturation 18 L Ferritin 184.0 Total Bilirubin 0.3 AST 35 ALT 13 L D Alkaline Phosphatase 49 Total Protein 9.0 H Albumin 4.5 Globulin 4.6 H Albumin/Globulin Ratio 1.0 Vitamin B12 572 Venous Blood Potassium Stool Occult Blood Blood Type Blood Type Confirm Antibody Screen SASHA, Poly Interpret Crossmatch BBK History Checked 10/15/18 10/15/18 10/15/18 16:26 17:05 17:13 WBC 7.6 RBC 4.35 L Hgb 8.2 L Hct 25.5 L MCV 58.5 L MCH 18.8 L MCHC 32.2 L RDW 17.5 H Plt Count 397 MPV 8.4 Neut % (Auto) 77.2 H Lymph % (Auto) 12.7 L [place] % (Auto) 8.7 Eos % (Auto) 0.8 Baso % (Auto) 0.6 Neut # (Auto) 5.9 Lymph # (Auto) 1.0 [place] # (Auto) 0.7 Eos # (Auto) 0.1 Baso # (Auto) 0.0 Retic Count PT INR APTT pO2 45 VBG pH 7.41 VBG pCO2 36 L VBG HCO3 23.4 VBG Total CO2 23.9 VBG O2 Sat (Calc) 85.0 H VBG Base Excess -1.4 L VBG Potassium 4.6 Glucose 157 H Lactate 4.3 H* FiO2 21.0 Blood Gas Comments Lac=4.3 Crit Value Called To anita Fuentes Crit Value Called By 22 Crit Value Read Back Y Blood Gas Notified Time 1632 Sodium 130.0 L Potassium Chloride 96.0 L Carbon Dioxide Anion Gap BUN Creatinine Est GFR ( Amer) Est GFR (Non-Af Amer) Random Glucose Lactic Acid Calcium Phosphorus Magnesium Iron TIBC % Saturation Ferritin Total Bilirubin AST ALT Alkaline Phosphatase Total Protein Albumin Globulin Albumin/Globulin Ratio Vitamin B12 Venous Blood Potassium 4.6 Stool Occult Blood Blood Type Blood Type Confirm A POSITIVE Antibody Screen SASHA, Poly Interpret Crossmatch BBK History Checked 10/15/18 10/15/18 10/15/18 17:13 19:31 19:35 WBC RBC Hgb Hct MCV MCH MCHC RDW Plt Count MPV Neut % (Auto) Lymph % (Auto) [place] % (Auto) Eos % (Auto) Baso % (Auto) Neut # (Auto) Lymph # (Auto) [place] # (Auto) Eos # (Auto) Baso # (Auto) Retic Count 1.4 PT INR APTT pO2 VBG pH VBG pCO2 VBG HCO3 VBG Total CO2 VBG O2 Sat (Calc) VBG Base Excess VBG Potassium Glucose Lactate FiO2 Blood Gas Comments Crit Value Called To Crit Value Called By Crit Value Read Back Blood Gas Notified Time Sodium Potassium Chloride Carbon Dioxide Anion Gap BUN Creatinine Est GFR ( Amer) Est GFR (Non-Af Amer) Random Glucose Lactic Acid 4.1 H* Calcium Phosphorus Magnesium Iron TIBC % Saturation Ferritin Total Bilirubin AST ALT Alkaline Phosphatase Total Protein Albumin Globulin Albumin/Globulin Ratio Vitamin B12 Venous Blood Potassium Stool Occult Blood Blood Type Blood Type Confirm Antibody Screen SASHA, Poly Interpret Negative Crossmatch BBK History Checked Assessment & Plan (1) Anemia Assessment and Plan: retic count, b12, folate, ferritin, direct wagner, hgb electropheresis, FOBT element of anemia of CKD and anemia of HIV/chronic disease agree with transfusion support as patient symptomatic will consider Procrit supplementation Status: Acute (2) Liver mass Assessment and Plan: will add AFP and CA 19-9 hepatobiliary f/u as outpatient biopsy x 2 non diagnostic - outpatient f/u Thank you for this interesting consult. Status: Acute
[2018-10-15] MEDS ORDERED: INSULIN DETEMIR 30 UNIT SC SCH (22:00)
[2018-10-15] MEDS ORDERED: Sodium Chloride 0.9% 1,000 ML IV SCH (22:00)
[2018-10-15] MEDS ORDERED: Insulin Detemir 100 Units/ml Inj SC SCH (22:00)
[2018-10-15 22:05] LABS: FOLATE 13.9 ng/mL
[2018-10-15] MEDS: Insulin Regular 100 units/ml SC SCH (23:18)
--- NOTE | 2018-10-15 23:25 | CARD ---
APPROVED REPORT Date of service: 10/15/2018 EKG Measurement Heart [id number] [id number] <Conclusion> Normal sinus rhythm Normal ECG
[2018-10-16 06:31] LABS: BASO # 0.1 K/uL (0.0-0.2); BASO % 0.8 % (0.0-2.0); EOS # 0.1 K/uL (0.0-0.7); HEMOGLOBIN 8.5 g/dL (12.0-18.0); LYMPH # 1.2 K/uL (1.0-4.3); LYMPH % 16.7 % (20.0-40.0); MEAN CELL VOLUME 60.7 fl (80.0-94.0); MEAN CORPUSCULAR HEMOGLOBIN 19.5 pg (27.0-31.0); MEAN CORPUSCULAR HGB CONC 32.1 g/dL (33.0-37.0); MEAN PLATELET VOLUME 7.3 fl (7.2-11.7); MONO # 0.8 K/uL (0.0-0.8); MONO % 11.5 % (0.0-10.0); NEUT # 4.9 K/uL (1.8-7.0); RBC 4.39 Mil/uL (4.40-5.90); RED CELL DISTRIBUTION WIDTH 18.8 % (11.5-14.5); WHITE BLOOD COUNT 7.1 K/uL (4.8-10.8)
[2018-10-16 06:40] LABS: BLOOD UREA NITROGEN 21 mg/dl (9-20); CALCIUM 9.3 mg/dL (8.4-10.2); GFR NON-AFRICAN AMERICAN > 60
[2018-10-16] MEDS: Insulin Regular 100 units/ml SC SCH ×2 (07:38→13:05)
[2018-10-16] MEDS ORDERED: Omega-3-Acid Ethyl Esters 1 GM Cap PO SCH (09:00)
[2018-10-16] MEDS ORDERED: LAMIVUDINE 300 MG PO SCH (09:00)
[2018-10-16] MEDS ORDERED: Patient's Own Med (Sitagliptin Phos/Metformin Hcl [Janumet 50-1,000 Mg Tablet] 1 EACH) PO SCH (09:00)
[2018-10-16] MEDS ORDERED: COBICISTAT PO SCH (09:00)
[2018-10-16] MEDS ORDERED: Multivitamin Vitamin B Complex (Nephro-Vite) Tab PO SCH (09:00)
[2018-10-16] MEDS ORDERED: FLUTICASONE PROPION/SALMETEROL 113-14 IH SCH (09:00)
[2018-10-16] MEDS ORDERED: LIPASE PO SCH (09:00)
[2018-10-16] MEDS ORDERED: Patient's Own Med (Budesonide/Formoterol Fumarate [Symbicort 160-4.5 Mcg Inhaler] 1 AER) IH SCH (09:00)
[2018-10-16] MEDS ORDERED: PROTEASE PO SCH (09:00)
[2018-10-16] MEDS ORDERED: AMYLASE PO SCH (09:00)
[2018-10-16] MEDS ORDERED: DARUNAVIR PO SCH (09:00)
[2018-10-16] MEDS ORDERED: Enoxaparin 40 mg Syringe SC SCH (09:00)
--- NOTE | 2018-10-16 12:05 | CP.PCM.PN ---
<Cielo Muñiz - Last Filed: 10/16/18 13:29> Subjective - Date & Time of Evaluation Date of Evaluation: 10/16/18 Time of Evaluation: 11:00 - Subjective Subjective: Patient seen and examined at bedside. Denies any complaints. No acute overnight events. Denies angina, dypsnea, cough, chills, nausea, vomiting, abdominal pain, urinary symptoms. Objective - Vital Signs/Intake and Output Vital Signs (last 24 hours): Temp Pulse Resp BP Pulse Ox 98.1 F 80 20 134/57 L 93 L 10/16/18 11:39 10/16/18 11:39 10/16/18 11:39 10/16/18 11:39 10/16/18 11:39 Intake and Output: 10/16/18 10/16/18 06:59 18:59 Intake Total 325 Balance 325 - Medications Medications: Current Medications Aspirin (Ecotrin) 81 mg PO DAILY [facility] Last Admin: 10/16/18 10:22 Dose: 81 mg Dextrose (Dextrose 50% Inj) 0 ml IV STAT PRN; Protocol PRN Reason: Hypoglycemia Protocol Dextrose (Glutose 15) 0 gm PO ONCE PRN; Protocol PRN Reason: Hypoglycemia Protocol Enalapril Maleate (Vasotec) 2.5 mg PO DAILY [facility] Last Admin: 10/16/18 10:20 Dose: 2.5 mg Enoxaparin Sodium (Lovenox) 40 mg SC DAILY [facility]; Protocol Last Admin: 10/16/18 10:14 Dose: 40 mg Fenofibrate (Tricor) 145 mg PO DAILY [facility] Last Admin: 10/16/18 11:44 Dose: 145 mg Ferrous Sulfate (Feosol) 325 mg PO DAILY [facility] Last Admin: 10/16/18 10:44 Dose: 325 mg Folic Acid (Folic Acid) 1 mg PO DAILY [facility] Last Admin: 10/16/18 10:16 Dose: 1 mg Furosemide (Lasix) 20 mg PO DAILY [facility] Last Admin: 10/16/18 10:16 Dose: 20 mg Glipizide (Glucotrol) 5 mg PO DAILY [facility] Last Admin: 10/16/18 10:20 Dose: 5 mg Glucagon (Glucagen Diagnostic Kit) 0 mg IM STAT PRN; Protocol PRN Reason: Hypoglycemia Protocol Home Med (Darunavir/Cobicistat [Prezcobix 800 Mg-150 Mg Tablet]) 1 tab PO DAILY [facility] Home Med (Lipase/Protease/Amylase [Creon Dr 24,000 Units Capsule]) 1 tab PO TID [facility] Insulin Detemir (Levemir) 30 units SC [facility] Last Admin: 10/15/18 23:54 Dose: 30 units Insulin Human Regular (Humulin R) 0 units SC [facility]; Protocol Last Admin: 10/16/18 07:38 Dose: Not Given Lamivudine (Epivir) 300 mg PO DAILY [facility] Last Admin: 10/16/18 10:19 Dose: 300 mg Metformin HCl (Glucophage) 1,000 mg PO BID@0800,1700 [facility] Last Admin: 10/16/18 08:47 Dose: 1,000 mg [id number] Ethyl Esters (Lovaza) 1 gm PO BID [facility] Last Admin: 10/16/18 10:15 Dose: 1 gm Sitagliptin Phosphate (Januvia) 50 mg PO BID@0800,1700 [facility] Last Admin: 10/16/18 08:47 Dose: 50 mg Terazosin HCl (Hytrin) 4 mg PO [facility] Last Admin: 10/16/18 10:22 Dose: 4 mg Vitamin B Complex/Vit C/Folic Acid (Nephro-Mallika) 1 tab PO DAILY [facility] Last Admin: 10/16/18 10:18 Dose: 1 tab - Labs Labs: 10/16/18 05:50 10/16/18 05:50 PT 13.1 Seconds (9.8-13.1) 10/15/18 16:24 INR 1.2 10/15/18 16:24 APTT 37.2 Seconds (25.6-37.1) H 10/15/18 16:24 - Constitutional Appears: Non-toxic, No Acute Distress - Eye Exam Eye Exam: Normal appearance - ENT Exam ENT Exam: Mucous Membranes Moist - Respiratory Exam Respiratory Exam: Clear to Ausculation Bilateral, NORMAL BREATHING PATTERN. absent: Accessory Muscle Use, Chest Wall Tenderness, Decreased Breath Sounds, Prolonged Expiratory Phase, Rales, Rhonchi, Wheezes, Respiratory Distress, Stridor - Cardiovascular Exam Cardiovascular Exam: +S1, +S2 - GI/Abdominal Exam GI & Abdominal Exam: Soft, Normal Bowel Sounds. absent: Distended, Firm, Guarding, Rigid, Tenderness, Rebound - Extremities Exam Extremities Exam: Normal Capillary Refill, Normal Inspection. absent: Calf Tenderness, Pedal Edema, Tenderness - Neurological Exam Neurological Exam: Alert, Awake, Oriented x3 - Psychiatric Exam Psychiatric exam: Normal Affect, Normal Mood - Skin Skin Exam: Dry, Intact, Normal Color, Warm Assessment and Plan - Assessment and Plan (Free Text) Assessment: 73 yo Male with history of HTN, NIDDM, HIV, dyslipidemia, thalassemia admitted for symptomatic anemia and dehydration. Plan: Microcytic anemia, acute on chronic -hx of thalassemia -symptomatic anemia -Hem/onc consulted; 1 unit f PRBC, hb electrphoresis, retic count -hb electroporesis ordered -s/p transfusion of 1 unit of PRBC as ordered -c/w folic acid daily Dehydration -hyponatremia/hypocholoremia -BUN improving -IV fluids Lactic acidosis -likely 2.2 to dehydration -infection less likely, will follow up procalcalcitonin -c/w IVF hydration - Lactic acid trending down from 4.1 to 1.0 HIV -CD4 235 (09/2018) and HIV viral load undetectable -c.w home meds HTN/dyslipidimia -chronic, controlled -c/w home meds NIDDM -chronic -c/w home meds -low sliding scale, hypoglycemia DVT prophylaxis -Lovenox SC <Marlon Venegas D - Last Filed: 10/16/18 13:51> Objective - Vital Signs/Intake and Output Vital Signs (last 24 hours): Temp Pulse Resp BP Pulse Ox 97.6 F 80 20 150/68 95 10/16/18 12:44 10/16/18 12:44 10/16/18 12:44 10/16/18 12:44 10/16/18 12:44 Intake and Output: 10/16/18 10/16/18 06:59 18:59 Intake Total 325 Output Total 400 Balance 325 -400 - Medications Medications: Current Medications Aspirin (Ecotrin) 81 mg PO DAILY [facility] Last Admin: 10/16/18 10:22 Dose: 81 mg Dextrose (Dextrose 50% Inj) 0 ml IV STAT PRN; Protocol PRN Reason: Hypoglycemia Protocol Dextrose (Glutose 15) 0 gm PO ONCE PRN; Protocol PRN Reason: Hypoglycemia Protocol Enalapril Maleate (Vasotec) 2.5 mg PO DAILY [facility] Last Admin: 10/16/18 10:20 Dose: 2.5 mg Enoxaparin Sodium (Lovenox) 40 mg SC DAILY [facility]; Protocol Last Admin: 10/16/18 10:14 Dose: 40 mg Fenofibrate (Tricor) 145 mg PO DAILY [facility] Last Admin: 10/16/18 11:44 Dose: 145 mg Ferrous Sulfate (Feosol) 325 mg PO DAILY [facility] Last Admin: 10/16/18 10:44 Dose: 325 mg Folic Acid (Folic Acid) 1 mg PO DAILY [facility] Last Admin: 10/16/18 10:16 Dose: 1 mg Furosemide (Lasix) 20 mg PO DAILY [facility] Last Admin: 10/16/18 10:16 Dose: 20 mg Glipizide (Glucotrol) 5 mg PO DAILY [facility] Last Admin: 10/16/18 10:20 Dose: 5 mg Glucagon (Glucagen Diagnostic Kit) 0 mg IM STAT PRN; Protocol PRN Reason: Hypoglycemia Protocol Home Med (Darunavir/Cobicistat [Prezcobix 800 Mg-150 Mg Tablet]) 1 tab PO DAILY [facility] Home Med (Lipase/Protease/Amylase [Creon Dr 24,000 Units Capsule]) 1 tab PO TID [facility] Insulin Detemir (Levemir) 30 units SC [facility] Last Admin: 10/15/18 23:54 Dose: 30 units Insulin Human Regular (Humulin R) 0 units SC [facility]; Protocol Last Admin: 10/16/18 13:05 Dose: Not Given Lamivudine (Epivir) 300 mg PO DAILY [facility] Last Admin: 10/16/18 10:19 Dose: 300 mg Metformin HCl (Glucophage) 1,000 mg PO BID@0800,1700 [facility] Last Admin: 10/16/18 08:47 Dose: 1,000 mg [id number]-[id number] Ethyl Esters (Lovaza) 1 gm PO BID [facility] Last Admin: 10/16/18 10:15 Dose: 1 gm Sitagliptin Phosphate (Januvia) 50 mg PO BID@0800,1700 [facility] Last Admin: 10/16/18 08:47 Dose: 50 mg Terazosin HCl (Hytrin) 4 mg PO HS [facility] Last Admin: 10/16/18 10:22 Dose: 4 mg Vitamin B Complex/Vit C/Folic Acid (Nephro-Mallika) 1 tab PO DAILY [facility] Last Admin: 10/16/18 10:18 Dose: 1 tab - Labs Labs: 10/16/18 05:50 10/16/18 05:50 PT 13.1 Seconds (9.8-13.1) 10/15/18 16:24 INR 1.2 10/15/18 16:24 APTT 37.2 Seconds (25.6-37.1) H 10/15/18 16:24 Attending/Attestation - Attestation I have personally seen and examined this patient.: Yes I have fully participated in the care of the patient.: Yes I have reviewed all pertinent clinical information, including history, physical exam and plan: Yes Notes (Text): 10/16/18 13:50 Patient seen and examined with resident. Case discussed and agreed with assessment.
[2018-10-16] MEDS ORDERED: Pneumococcal 23-Valent Vaccine IM ONE (12:31)
[2018-10-16 12:45] VITALS: BP 150/68; PULSE 80; RESP 20; TEMP 97.6; O2SAT 95
--- NOTE | 2018-10-16 14:42 | CP.PCM.DIS ---
<Cielo Muñiz - Last Filed: 10/16/18 14:39> Provider - Provider Date of Admission: 10/15/18 18:25 Attending physician: Alfreda Crisostomo DO Consults: 10/15/18 18:21 Hematology Oncology Consult Stat Comment: Consulting Provider: Guy Mcdaniel Consulting Physician: Guy Mcdaniel Reason for Consult: anemia, h/o thalassemia 10/16/18 12:31 Pastoral Care Referral Routine Comment: Physician Instructions: Reason For Exam: advanced directive Social Work Referral Routine Comment: discharge planning Physician Instructions: Reason For Exam: discharge planning Time Spent in preparation of Discharge (in minutes): 30 Diagnosis - Discharge Diagnosis (1) Symptomatic anemia Status: Acute Comment: Microcytic anemia, acute on chronic. -hx of thalassemia. -Hem/onc consulted- s/p 1 unit f PRBC, hb electrphoresis and retic count ordered. -c/w folic acid daily (2) Lactic acidosis Status: Acute Comment: - Resoled. -was likely 2.2 to dehydration as trended down from 4.1 to 1.0 with IVF (3) Dehydration Status: Acute Comment: -resolved. -BUN improving. -IV fluids (4) HIV (human immunodeficiency virus infection) Status: Chronic Comment: - CD4 235 (09/2018) and HIV viral load undetectable. - Home meds were continued during hospital stay (5) HTN (hypertension) Status: Chronic (6) HLD (hyperlipidemia) Status: Chronic Comment: -chronic, controlled. -home meds were continued (7) NIDDY (non-insulin dependent diabetes mellitus in young) Status: Chronic Comment: -chronic, controlled. -home meds were continued Hospital Course - Lab Results Lab Results: Most Recent Lab Values WBC 7.1 K/uL (4.8-10.8) 10/16/18 05:50 RBC 4.39 Mil/uL (4.40-5.90) L 10/16/18 05:50 Hgb 8.5 g/dL (12.0-18.0) L 10/16/18 05:50 Hct 26.6 % (35.0-51.0) L 10/16/18 05:50 MCV 60.7 fl (80.0-94.0) L D 10/16/18 05:50 MCH 19.5 pg (27.0-31.0) L 10/16/18 05:50 MCHC 32.1 g/dL (33.0-37.0) L 10/16/18 05:50 RDW 18.8 % (11.5-14.5) H 10/16/18 05:50 Plt Count 383 K/uL (130-400) 10/16/18 05:50 MPV 7.3 fl (7.2-11.7) 10/16/18 05:50 Neut % (Auto) 69.0 % (50.0-75.0) 10/16/18 05:50 Lymph % (Auto) 16.7 % (20.0-40.0) L 10/16/18 05:50 [place] % (Auto) 11.5 % (0.0-10.0) H 10/16/18 05:50 Eos % (Auto) 2.0 % (0.0-4.0) 10/16/18 05:50 Baso % (Auto) 0.8 % (0.0-2.0) 10/16/18 05:50 Neut # (Auto) 4.9 K/uL (1.8-7.0) 10/16/18 05:50 Lymph # (Auto) 1.2 K/uL (1.0-4.3) 10/16/18 05:50 [place] # (Auto) 0.8 K/uL (0.0-0.8) 10/16/18 05:50 Eos # (Auto) 0.1 K/uL (0.0-0.7) 10/16/18 05:50 Baso # (Auto) 0.1 K/uL (0.0-0.2) 10/16/18 05:50 Retic Count 1.4 % (0.5-1.5) 10/15/18 19:31 PT 13.1 Seconds (9.8-13.1) 10/15/18 16:24 INR 1.2 10/15/18 16:24 APTT 37.2 Seconds (25.6-37.1) H 10/15/18 16:24 pO2 45 mm/Hg (30-55) 10/15/18 16:26 VBG pH 7.41 (7.32-7.43) 10/15/18 16:26 VBG pCO2 36 mmHg (40-60) L 10/15/18 16:26 VBG HCO3 23.4 mmol/L 10/15/18 16:26 VBG Total CO2 23.9 mmol/L (22-28) 10/15/18 16:26 VBG O2 Sat (Calc) 85.0 % (40-65) H 10/15/18 16:26 VBG Base Excess -1.4 mmol/L (0.0-2.0) L 10/15/18 16:26 VBG Potassium 4.6 mmol/L (3.6-5.2) 10/15/18 16:26 Sodium 130.0 mmol/L (132-148) L 10/15/18 16:26 Chloride 96.0 mmol/L (98-107) L 10/15/18 16:26 Glucose 157 mg/dL (75-110) H 10/15/18 16:26 Lactate 4.3 mmol/L (0.7-2.1) H* 10/15/18 16:26 FiO2 21.0 % 10/15/18 16:26 Blood Gas Comments Lac=4.3 10/15/18 16:26 Crit Value Called To [email or web address] 10/15/18 16:26 Crit Value Called By 22 10/15/18 16:26 Crit Value Read Back Y 10/15/18 16:26 Blood Gas Notified Time 1632 10/15/18 16:26 Sodium 132 mmol/l (132-148) 10/16/18 05:50 Potassium 4.6 MMOL/L (3.6-5.0) 10/16/18 05:50 Chloride 98 mmol/L (98-107) 10/16/18 05:50 Carbon Dioxide 24 mmol/L (22-30) 10/16/18 05:50 Anion Gap 15 (10-20) 10/16/18 05:50 BUN 21 mg/dl (9-20) H 10/16/18 05:50 Creatinine 1.1 mg/dl (0.8-1.5) 10/16/18 05:50 Est GFR ( Amer) > 60 10/16/18 05:50 Est GFR (Non-Af Amer) > 60 10/16/18 05:50 POC Glucose (mg/dL) 75 mg/dL (65-110) 10/16/18 13:04 Random Glucose 114 mg/dL (75-110) H 10/16/18 05:50 Lactic Acid 1.0 mmol/L (0.7-2.1) 10/16/18 08:50 Calcium 9.3 mg/dL (8.4-10.2) 10/16/18 05:50 Phosphorus 3.6 mg/dl (2.5-4.5) 10/15/18 16:24 Magnesium 1.7 MG/DL (1.6-2.3) 10/15/18 16:24 Iron 53 ug/dL (49-181) 10/15/18 16:24 TIBC 290 ug/dL (250-450) 10/15/18 16:24 % Saturation 18 % (20-55) L 10/15/18 16:24 Ferritin 184.0 ng/Ml (17.9-464) 10/15/18 16:24 Total Bilirubin 0.3 mg/dl (0.2-1.3) 10/15/18 16:24 AST 35 U/L (17-59) 10/15/18 16:24 ALT 13 U/L (21-72) L D 10/15/18 16:24 Alkaline Phosphatase 49 U/L (38-126) 10/15/18 16:24 Total Protein 9.0 G/DL (6.3-8.2) H 10/15/18 16:24 Albumin 4.5 g/dL (3.5-5.0) 10/15/18 16:24 Globulin 4.6 gm/dL (2.2-3.9) H 10/15/18 16:24 Albumin/Globulin Ratio 1.0 (1.0-2.1) 10/15/18 16:24 Alpha Fetoprotein 1.8 IU/mL (0.0-7.22) 10/16/18 05:50 Vitamin B12 572 pg/mL (239-931) 10/15/18 16:24 Folate 13.9 ng/mL 10/15/18 16:24 Procalcitonin < 0.05 NG/ML (0.19-0.49) L 10/15/18 20:20 Venous Blood Potassium 4.6 mmol/L (3.6-5.2) 10/15/18 16:26 Stool Occult Blood Negative (NEGATIVE) 10/15/18 16:00 Blood Type A POSITIVE 10/15/18 16:24 Blood Type Confirm A POSITIVE 10/15/18 17:05 Antibody Screen Negative 10/15/18 16:24 SASHA, Poly Interpret Negative (NEGATIVE) 10/15/18 19:35 Crossmatch See Detail 10/15/18 16:24 BBK History Checked No verified bt 10/15/18 16:24 - Hospital Course Hospital Course: 73 yo Male with history of HTN, NIDDM, HIV, dyslipidemia, thalassemia admitted for symptomatic anemia and dehydration. Patient was hemodynamically stable and was admitted to telemetry. No events noted on the monitor. Hem/Onc was consulted and patient recieved 1 unit of pRBC and was started on folic acid. Patient was fluid hydrated as he was dehydrated and BUN was resolving. Hgb on admission: 8.4; Hgb on discharge 8.5. Discharge Exam - Head Exam Head Exam: ATRAUMATIC, NORMOCEPHALIC - Eye Exam Eye Exam: Normal appearance - ENT Exam ENT Exam: Mucous Membranes Moist - Respiratory Exam Respiratory Exam: Clear to PA & Lateral, NORMAL BREATHING PATTERN, UNREMARKABLE. absent: Accessory Muscle Use, Chest Wall Tenderness, Decreased Breath Sounds, Prolonged Expiratory Phase, Rales, Rhonchi, Wheezes, Respiratory Distress, Stridor - Cardiovascular Exam Cardiovascular Exam: REGULAR RHYTHM, +S1, +S2 - GI/Abdominal Exam GI & Abdominal Exam: Normal Bowel Sounds, Soft, Unremarkable. absent: Distended, Firm, Rebound, Rigid, Tenderness - Extremities Exam Extremities exam: normal capillary refill, normal inspection, pedal pulses present - Neurological Exam Neurological exam: Alert, Oriented x3 - Psychiatric Exam Psychiatric exam: Normal Affect, Normal Mood - Skin Skin Exam: Dry, Intact, Normal Color, Warm Discharge Plan - Follow Up Plan Condition: STABLE Disposition: HOME/ ROUTINE Patient education suggested?: Yes Instructions: Dehydration, Adult (DC), Anemia of Chronic Disease (DC) Additional Instructions: follow up with in 2 weeks Referrals: Xavier Huff [Medical Doctor] - Guy Mcdaniel MD [Staff Provider] - <Marlon Venegas - Last Filed: 10/16/18 15:36> Provider - Provider Date of Admission: 10/15/18 18:25 Attending physician: Alfreda Crisostomo DO Consults: 10/15/18 18:21 Hematology Oncology Consult Stat Comment: Consulting Provider: Guy Mcdaniel Consulting Physician: Guy Mcdaniel Reason for Consult: anemia, h/o thalassemia 10/16/18 12:31 Pastoral Care Referral Routine Comment: Physician Instructions: Reason For Exam: advanced directive Social Work Referral Routine Comment: discharge planning Physician Instructions: Reason For Exam: discharge planning Hospital Course - Lab Results Lab Results: Most Recent Lab Values WBC 7.1 K/uL (4.8-10.8) 10/16/18 05:50 RBC 4.39 Mil/uL (4.40-5.90) L 10/16/18 05:50 Hgb 8.5 g/dL (12.0-18.0) L 10/16/18 05:50 Hct 26.6 % (35.0-51.0) L 10/16/18 05:50 MCV 60.7 fl (80.0-94.0) L D 10/16/18 05:50 MCH 19.5 pg (27.0-31.0) L 10/16/18 05:50 MCHC 32.1 g/dL (33.0-37.0) L 10/16/18 05:50 RDW 18.8 % (11.5-14.5) H 10/16/18 05:50 Plt Count 383 K/uL (130-400) 10/16/18 05:50 MPV 7.3 fl (7.2-11.7) 10/16/18 05:50 Neut % (Auto) 69.0 % (50.0-75.0) 10/16/18 05:50 Lymph % (Auto) 16.7 % (20.0-40.0) L 10/16/18 05:50 [place] % (Auto) 11.5 % (0.0-10.0) H 10/16/18 05:50 Eos % (Auto) 2.0 % (0.0-4.0) 10/16/18 05:50 Baso % (Auto) 0.8 % (0.0-2.0) 10/16/18 05:50 Neut # (Auto) 4.9 K/uL (1.8-7.0) 10/16/18 05:50 Lymph # (Auto) 1.2 K/uL (1.0-4.3) 10/16/18 05:50 [place] # (Auto) 0.8 K/uL (0.0-0.8) 10/16/18 05:50 Eos # (Auto) 0.1 K/uL (0.0-0.7) 10/16/18 05:50 Baso # (Auto) 0.1 K/uL (0.0-0.2) 10/16/18 05:50 Retic Count 1.4 % (0.5-1.5) 10/15/18 19:31 PT 13.1 Seconds (9.8-13.1) 10/15/18 16:24 INR 1.2 10/15/18 16:24 APTT 37.2 Seconds (25.6-37.1) H 10/15/18 16:24 pO2 45 mm/Hg (30-55) 10/15/18 16:26 VBG pH 7.41 (7.32-7.43) 10/15/18 16:26 VBG pCO2 36 mmHg (40-60) L 10/15/18 16:26 VBG HCO3 23.4 mmol/L 10/15/18 16:26 VBG Total CO2 23.9 mmol/L (22-28) 10/15/18 16:26 VBG O2 Sat (Calc) 85.0 % (40-65) H 10/15/18 16:26 VBG Base Excess -1.4 mmol/L (0.0-2.0) L 10/15/18 16:26 VBG Potassium 4.6 mmol/L (3.6-5.2) 10/15/18 16:26 Sodium 130.0 mmol/L (132-148) L 10/15/18 16:26 Chloride 96.0 mmol/L (98-107) L 10/15/18 16:26 Glucose 157 mg/dL (75-110) H 10/15/18 16:26 Lactate 4.3 mmol/L (0.7-2.1) H* 10/15/18 16:26 FiO2 21.0 % 10/15/18 16:26 Blood Gas Comments Lac=4.3 10/15/18 16:26 Crit Value Called To anita Fuentes 10/15/18 16:26 Crit Value Called By 10/15/18 16:26 Crit Value Read Back Y 10/15/18 16:26 Blood Gas Notified Time 1632 10/15/18 16:26 Sodium 132 mmol/l (132-148) 10/16/18 05:50 Potassium 4.6 MMOL/L (3.6-5.0) 10/16/18 05:50 Chloride 98 mmol/L (98-107) 10/16/18 05:50 Carbon Dioxide 24 mmol/L (22-30) 10/16/18 05:50 Anion Gap 15 (10-20) 10/16/18 05:50 BUN 21 mg/dl (9-20) H 10/16/18 05:50 Creatinine 1.1 mg/dl (0.8-1.5) 10/16/18 05:50 Est GFR ( Amer) > 60 10/16/18 05:50 Est GFR (Non-Af Amer) > 60 10/16/18 05:50 POC Glucose (mg/dL) 75 mg/dL (65-110) 10/16/18 13:04 Random Glucose 114 mg/dL (75-110) H 10/16/18 05:50 Lactic Acid 1.0 mmol/L (0.7-2.1) 10/16/18 08:50 Calcium 9.3 mg/dL (8.4-10.2) 10/16/18 05:50 Phosphorus 3.6 mg/dl (2.5-4.5) 10/15/18 16:24 Magnesium 1.7 MG/DL (1.6-2.3) 10/15/18 16:24 Iron 53 ug/dL (49-181) 10/15/18 16:24 TIBC 290 ug/dL (250-450) 10/15/18 16:24 % Saturation 18 % (20-55) L 10/15/18 16:24 Ferritin 184.0 ng/Ml (17.9-464) 10/15/18 16:24 Total Bilirubin 0.3 mg/dl (0.2-1.3) 10/15/18 16:24 AST 35 U/L (17-59) 10/15/18 16:24 ALT 13 U/L (21-72) L D 10/15/18 16:24 Alkaline Phosphatase 49 U/L (38-126) 10/15/18 16:24 Total Protein 9.0 G/DL (6.3-8.2) H 10/15/18 16:24 Albumin 4.5 g/dL (3.5-5.0) 10/15/18 16:24 Globulin 4.6 gm/dL (2.2-3.9) H 10/15/18 16:24 Albumin/Globulin Ratio 1.0 (1.0-2.1) 10/15/18 16:24 Alpha Fetoprotein 1.8 IU/mL (0.0-7.22) 10/16/18 05:50 Vitamin B12 572 pg/mL (239-931) 10/15/18 16:24 Folate 13.9 ng/mL 10/15/18 16:24 Procalcitonin < 0.05 NG/ML (0.19-0.49) L 10/15/18 20:20 Venous Blood Potassium 4.6 mmol/L (3.6-5.2) 10/15/18 16:26 Stool Occult Blood Negative (NEGATIVE) 10/15/18 16:00 Blood Type A POSITIVE 10/15/18 16:24 Blood Type Confirm A POSITIVE 10/15/18 17:05 Antibody Screen Negative 10/15/18 16:24 SASHA, Poly Interpret Negative (NEGATIVE) 10/15/18 19:35 Crossmatch See Detail 10/15/18 16:24 BBK History Checked No verified bt 10/15/18 16:24 Attending/Attestation - Attestation I have personally seen and examined this patient.: Yes I have fully participated in the care of the patient.: Yes I have reviewed all pertinent clinical information, including history, physical exam and plan: Yes Notes (Text): 10/16/18 15:35 Patient seen and examined with resident. Case discussed and agreed with assessment. Patient discharged in stable condition.
[2018-10-17 07:13] LABS: MCV 60.2 fL (80.0-100.0)
== END 2018-10-16 15:10 | disposition home or self-care (01) ==
LOC: H.ER 15:28 → H.ERHOLD 18:25 → H.TEL 10-16 11:50
PROVIDERS: ADMIT Student in an Organized Health Care Education/Training Program; ATTEND Student in an Organized Health Care Education/Training Program
DX: D50.9 Iron deficiency anemia, unspecified (principal); I12.9 Hypertensive chronic kidney disease with stage 1 through stage 4 chronic kidney disease, or unspecified chronic kidney disease; D63.1 Anemia in chronic kidney disease; D56.9 Thalassemia, unspecified; E11.22 Type 2 diabetes mellitus with diabetic chronic kidney disease; E78.00 Pure hypercholesterolemia, unspecified; E78.5 Hyperlipidemia, unspecified; E86.0 Dehydration; E87.2 Acidosis; J45.909 Unspecified asthma, uncomplicated; Z79.4 Long term (current) use of insulin; Z79.82 Long term (current) use of aspirin; Z80.0 Family history of malignant neoplasm of digestive organs; Z86.010 Personal history of colon polyps; Z87.891 Personal history of nicotine dependence; Z90.49 Acquired absence of other specified parts of digestive tract; K82.9 Disease of gallbladder, unspecified; Z87.19 Personal history of other diseases of the digestive system; R80.9 Proteinuria, unspecified; Z79.899 Other long term (current) drug therapy; R16.0 Hepatomegaly, not elsewhere classified; R94.4 Abnormal results of kidney function studies; B20 Human immunodeficiency virus [HIV] disease
CPT/HCPCS: 36430; 71045; 80048; 80053; 82105; 82607; 82728; 82746; 82747; 82803; 82948; 83021; 83540; 83550; 83605; 83735; 84100; 84145; 85014; 85018; 85025; 85041; 85044; 85610; 85730; 86301; 86850; 86880; 86900; 86920; 87040; 93005; 96372; 99285; G0328; G0378; J1650; J7030; P9051